=== PATIENT | female | born 1990 | race Caucasian/White ===

== ENCOUNTER 2019-07-23 12:25 | Inpatient (IN) ==
[2019-07-23] MEDS ORDERED: LACTATED RINGER'S 1,000 ML IV PRN (12:55)
[2019-07-23] MEDS ORDERED: OXYTOCIN 30 UNITS/500 ML BAG IV PRN ×2 (12:55→16:31)
--- NOTE | 2019-07-23 13:18 | History & Physical Report ---
Date of Service July 23, 2019 Assessment & Plan (1) Supervision of normal intrauterine in primigravida: 28yo at 39.2 weeks GA. Active labor 1. Fetus: Cat 1 2. Labor: Active. will augment PRN 3. GBS neg 4. Vitals: WNL (2) Normal labor: History of Present Illness Primary Care Provider: Manjinder Shore III, CRNP 28yo at 39.2 weeks GA. Patient present for ctx increasing in frequency and intensity. Denies LOF/VB. Good FM. has been uncomplicated to date. OB Labs: Blood Type A Positive 12/27/18 Antibody Screen NEGATIVE 12/27/18 Hemoglobin 13.4 g/dL (12.0-16.0) 05/11/19 Hematocrit 40.1 % (37-47) 05/11/19 Mean Corpuscular Volume 90.0 fL (80-100) 12/27/18 Platelet Count 285 K/uL (130-400) 12/27/18 Rubella IgG Antibody Immune (Immune) 12/27/18 Rapid Plasma Reagin Nonreactive (Nonreactive) 12/27/18 Hepatitis B Surface Antigen Neg (Neg) 12/27/18 HIV (1&2) Ab and P24 Ag, 4th Gener Neg (Neg) 12/27/18 Glucose 1 Hour 50 gm Load 118 mg/dl (70-130) 05/11/19 OB Optional Labs: Chlamydia trachomatis RNA NOT DETECTED (NOT DETECTED) 12/27/18 Neisseria gonorrhoeae RNA NOT DETECTED (NOT DETECTED) 12/27/18 Labs Reviewed: declines panorama, cf/sma today. Declined QUAD (-) GBS- TJH Allergies Allergy/AdvReac Type Severity Reaction Status Date / Time No Known Allergies Allergy Verified 07/23/19 13:06 Home Medications Home Medications Medication Instructions Recorded Confirmed Type prenat.vits,sebastian,sli-eecp-cldmm 1 tab PO DAILY 12/19/18 07/23/19 History Patient History Medical History (Updated 07/23/19 @ 13:15 by Anthony Jacob MD) Anxiety and depression no medications Encounter for anatomic survey Hx of varicella Normal labor Social History marital status: marital status details: Frank Alfonso (29) [phone] Current Living Situation: Spouse Current Living Situation Comment: no pets current occupational status: employed current occupation: teacher Smoking Status: Never smoker Hx Alcohol Use: No Hx Substance Use: No Physical Exam Constitutional: WD/WN, vitals as above well developed, well nourished and + well hydrated; no acute distress ENMT: external ear and nose normal, oropharynx normal Respiratory: normal respiratory effort, lungs clear to auscultation no respiratory distress, no labored breathing and no cough Cardiovascular: RRR, no murmur, no edema Heart Sounds: normal S1 and normal S2 Psychiatric: A+Ox3, euthymic affect Apperance: appropriately dressed and appropriately groomed Genitourinary: OB Exam Abdomen: + vertex Manual OB Exam: + cervical dilation 5 cm, + cervical effacement 100% and + station -1 OB Exam Monitor Tracing: + external FHT monitor used, + external uterine monitor used, + category I and + normal FHT variability; no early decelerations present, no late decelerations present and no variable decelerations Results & Data Vital Signs (Past 12 Hours) Vital Signs Pulse BP 07/23/19 12:58 72 135/68 Coding Level of Care Code None Diagnoses Supervision of normal intrauterine in primigravida Z34.00 Normal labor O80; Z37.9
[2019-07-23 13:24] LABS: Hematocrit (blood only) 41.3 % (37-47); Hemoglobin 14.2 g/dL (12.0-16.0); Mean Corpuscular Hemoglobin 31.7 pg (25-34); Mean Corpuscular Volume 92.2 fL (80-100); Platelet Count 274 K/uL (130-400); RDW Coefficient of Variation 13.1 % (11.5-14.5); RDW Standard Deviation 44.2 fL (36.4-46.3); Red Blood Count 4.48 M/uL (4.2-5.4); White Blood Count 14.83 K/uL (4.8-10.8)
[2019-07-23 13:26] LABS: Mean Corpuscular Hgb Conc 34.4 g/dL (32-36)
[2019-07-23] MEDS ORDERED: DIPHTHERIA/TETANUS/PERTUSSIS 0.5 ML SYR/VIAL IM ONE (16:31)
[2019-07-23] MEDS ORDERED: SUPERCREAM 0.870% 15 GM JAR EXT PRN (16:31)
[2019-07-23] MEDS ORDERED: BENZOCAINE 20% AER SPR 82.5 GM CAN EXT PRN (16:31)
[2019-07-23] MEDS ORDERED: HYDROCORTISONE ACETATE 25 MG SUPP PR PRN (16:31)
[2019-07-23] MEDS ORDERED: bisacodyL 10 MG SUPP PR PRN (16:31)
[2019-07-23] MEDS ORDERED: ACETAMINOPHEN 325 MG TAB PO PRN (16:31)
--- NOTE | 2019-07-23 17:11 | Delivery Summary ---
DATE OF OPERATION: 07/23/2019 PROCEDURE: Normal spontaneous vaginal delivery with bilateral sulcal and second degree perineal laceration repair. SURGEON: Anthony Jacob MD. PREOPERATIVE DIAGNOSES: 1. Single intrauterine at 39 weeks' gestational age. 2. Active labor. POSTOPERATIVE DIAGNOSES: 1. Single intrauterine at 39 weeks' gestational age. 2. Active labor. 3. Status post delivery. ESTIMATED BLOOD LOSS: 300 mL. DRAINS: None. FLUIDS: Continuous lactated Ringer. URINE OUTPUT: Not measured. COMPLICATIONS: None. FINDINGS: Viable male infant with weight pending, Apgars of 8 and 9 at one and five minutes respectively. INDICATIONS: The patient was admitted in active labor. She progressed without augmentation. At the time she reached 9.5 cm dilated, she underwent artificial rupture of membranes for clear fluid. Shortly thereafter, she pushed over approximately 3-4 contractions to achieve delivery. DESCRIPTION OF PROCEDURE: The patient progressed to 10 cm dilated, 100% effaced, +3 station, pushed over intact perineum without anesthesia and delivered a viable male with weight and Apgars as noted per above. The head of the delivered in SAGRARIO position, restituted to right transverse. A nuchal cord was noted, which was easily reduced. Body and shoulders quickly followed. was delivered to maternal abdomen and was noted to be vigorous soon after delivery. A 1-minute delayed cord clamping was initiated, after which the cord was double clamped and cut and the remained on maternal abdomen. Cord blood was obtained. Attention was then turned to deliver the placenta, which was delivered intact with 3-vessel cord, gentle cord traction. On inspection of perineum, vagina, and cervix, there was noted to be bilateral sulcal lacerations and a second degree perineal laceration, all lacerations repaired with 2-0 Vicryl. The perineal laceration was performed in the traditional crown stitch and bilateral sulcals were repaired with a running locked suture stitch. Needle, sponge and instrument counts were correct at the completion of the case. Both mother and were stable in the immediate post-delivery period. I attest to the content of the Intraoperative Record and any orders documented therein. Any exception s are noted below.
[2019-07-23] MEDS: IBUPROFEN 600 MG TAB PO PRN ×2 (18:00→22:33)
[2019-07-23] MEDS: DOCUSATE SODIUM 100 MG CAP PO SCH (21:40)
[2019-07-24] MEDS: IBUPROFEN 600 MG TAB PO PRN ×3 (04:49→21:10)
--- NOTE | 2019-07-24 06:50 | Obstetrical Progress Note ---
Date of Service <Butch Perez DO Last Filed: 07/24/19 06:52> July 24, 2019 Assessment & Plan <DO Soraya Bardales Last Filed: 07/24/19 06:52> (1) : -PPD#1 -Vitals reviewed, WNL - GBS -, Blood Type A+ - Clinically stable. - Feels well today. Eating well, voiding well, ambulating well. - Pain well controlled. - Routine post- care - After discharge will have [address] Jacob. Day #:: 1 Subjective <Butch Perez DO Last Filed: 07/24/19 06:52> Ambulation: ambulating normally Voiding: no voiding problems Passing Gas:: Yes Diet Tolerance:: regular diet Lochia:: Moderate Feeding Type:: bottle feeding Current Pain Level(1-10): 3 (improves with analgesics) Patient is a 28 PPD#1. Patient states that she is feeling well today and that her pain is well controlled. She has no other complaints at this time. Constitutional: no fever and no chills Respiratory: no cough, no dyspnea and no wheezing Cardiovascular: no chest pain, no dyspnea, no palpitations, no edema and no calf pain Breast: no breast pain Gastrointestinal: no abdominal pain, no nausea and no vomiting Genitourinary (female): no dysuria and no difficulty urinating Neurologic: no headache(s) Physical Exam <DO Soraya Bardales Last Filed: 07/24/19 06:52> Constitutional WD/WN, vitals as above Respiratory normal respiratory effort, lungs clear to auscultation Cardiovascular Rate/Rhythm: regular rate and regular rhythm Heart Sounds: normal S1 and normal S2; no click, no gallop, no murmur and no cardiac rub Extremities: no calf tenderness and no edema Gastrointestinal (Abdomen) Inspection/Auscultation: abdomen normal to inspection and normal bowel sounds Percussion/Palpation: abdomen soft; abdomen nontender Genitourinary OB Exam Abdomen: + fundal height Fundus: + firm and + relation to umbilicus (2cm below ); not tender and not boggy Results & Data <DO Soraya Bardales Last Filed: 07/24/19 06:52> Vital Signs (Past 12 Hours) Vital Signs Temp Pulse Resp BP Pulse Ox 07/24/19 04:40 36.5 C 61 17 135/79 99 07/23/19 23:20 36.8 C 79 17 132/83 97 07/23/19 19:45 36.4 C L 84 16 124/78 97 <Anthony Jacob MD - Last Filed: 07/24/19 08:09> Co-Signing Physician Notes Patient seen and evaluated and agree with the above findings and plan. Routine care Resident Activity Tracking <Butch Perez DO - Last Filed: 07/24/19 06:52> Resident Involvement: Resident Care Provided Care Provided: OB Delivery
[2019-07-24 07:31] LABS: Hematocrit (blood only) 37.4 % (37-47); Hemoglobin 12.8 g/dL (12.0-16.0); Mean Corpuscular Hemoglobin 31.8 pg (25-34); Mean Corpuscular Hgb Conc 34.2 g/dL (32-36); Mean Platelet Volume 10.8 fL (7.4-10.4); Platelet Count 242 K/uL (130-400); RDW Coefficient of Variation 13.4 % (11.5-14.5); RDW Standard Deviation 45.9 fL (36.4-46.3); Red Blood Count 4.02 M/uL (4.2-5.4)
[2019-07-24] MEDS: FERROUS SULFATE 325 MG TAB PO SCH (08:57)
[2019-07-24] MEDS: DOCUSATE SODIUM 100 MG CAP PO SCH ×2 (08:57→19:41)
[2019-07-24] MEDS: PRENATAL VITAMIN 1 TAB PO SCH (08:57)
[2019-07-24] MEDS ORDERED: bisacodyL 5 MG TABEC PO SCH (20:00)
[2019-07-25] MEDS: IBUPROFEN 600 MG TAB PO PRN ×3 (02:13→12:46)
[2019-07-25 06:14] LABS: Hematocrit (blood only) 38.8 % (37-47)
--- NOTE | 2019-07-25 06:17 | Obstetrical Progress Note ---
Date of Service <Butch Perez DO Last Filed: 07/25/19 06:17> July 25, 2019 Assessment & Plan <DO Soraya Bardales Last Filed: 07/25/19 06:17> (1) : -PPD#2 -Vitals reviewed, WNL - GBS -, Blood Type A+ - Clinically stable. - Feels well today. Eating well, voiding well, ambulating well. - Pain well controlled. - Routine post- care - Discharge instructions discussed with patient - After discharge will have [address] Jacob. Day #:: 2 Subjective <Butch Perez DO - Last Filed: 07/25/19 06:17> Ambulation: ambulating normally Voiding: no voiding problems Passing Gas:: Yes Diet Tolerance:: regular diet Lochia:: Moderate Feeding Type:: breast feeding Current Pain Level(1-10): 2 (improved with analgesics) Patient is a 28 PPD#2. Patient states that she is feeling well today and that her pain is well controlled. She has no other complaints at this time. She does request today to review with the counseling specialist. Constitutional: no fever and no chills Respiratory: no cough, no dyspnea and no wheezing Cardiovascular: no chest pain, no dyspnea, no palpitations, no edema and no calf pain Breast: no breast pain Gastrointestinal: no abdominal pain, no nausea and no vomiting Genitourinary (female): no dysuria and no difficulty urinating Neurologic: no headache(s) Physical Exam <DO Soraya Bardales Last Filed: 07/25/19 06:17> Constitutional WD/WN, vitals as above Respiratory normal respiratory effort, lungs clear to auscultation Cardiovascular Rate/Rhythm: regular rate and regular rhythm Heart Sounds: normal S1 and normal S2; no click, no gallop, no murmur and no cardiac rub Extremities: no calf tenderness and no edema Gastrointestinal (Abdomen) Inspection/Auscultation: abdomen normal to inspection and normal bowel sounds Percussion/Palpation: abdomen soft; abdomen nontender Genitourinary OB Exam Abdomen: + fundal height Fundus: + firm and + relation to umbilicus (3cm below); not tender and not boggy Results & Data <Butch MonaconDO Lira Last Filed: 07/25/19 06:17> Vital Signs (Past 12 Hours) Vital Signs Temp Pulse Resp BP Pulse Ox 07/24/19 23:35 36.9 C 77 16 118/79 96 07/24/19 19:50 36.6 C 97 H 18 134/84 <Lois Caraballo MD - Last Filed: 07/25/19 07:25> Co-Signing Physician Notes I have reviewed the resident's note and examined the patient myself, and agree with the note above. Resident Activity Tracking <Butch Perez DO - Last Filed: 07/25/19 06:17> Resident Involvement: Resident Care Provided Care Provided: OB Delivery
[2019-07-25] MEDS: DOCUSATE SODIUM 100 MG CAP PO SCH (07:50)
[2019-07-25] MEDS: PRENATAL VITAMIN 1 TAB PO SCH (07:51)
[2019-07-25] MEDS: FERROUS SULFATE 325 MG TAB PO SCH (07:51)
== END 2019-07-25 14:45 | disposition home or self-care (01) | DRG 807 ==
LOC: LAB 12:25 → 4S1 12:49 → 4S2 19:31

== ENCOUNTER 2019-08-29 10:55 | Observation (INO) ==
[2019-08-29] MEDS ORDERED: ACETAMINOPHEN 325 MG TAB PO STA (12:01)
[2019-08-29] MEDS ORDERED: SODIUM CHLORIDE 0.9% 500 ML IV SCH (12:15)
--- NOTE | 2019-08-29 12:20 | Emergency Department Note ---
Impression & Plan Acute appendicitis, Abdominal pain, Left nephrolithiasis ED Provider Note NAME: FRANCK ALFONSO AGE: 28 SEX: F : 1990 ARRIVES VIA: Walk-In INFORMANT: Patient, ED PROVIDER(S): George Duffy MD Chief Complaint: Abdominal pain HPI: Patient presents w/ abdominal pain. Localized to lower abdomen and RLQ beginning around 2 AM. She describes it as achy and non-radiating. Denies nausea or vomiting. Patient is 5 weeks post . The patient has been breast pumping and breast-feeding. The patient denies any recent trauma or overuse or injury to the right hip or abdomen. The patient has not had any recent travel or fevers. The patient states she has had no vaginal bleeding only some spotting. Patient denies any discharge. This is the patient's first . Child is doing well at home. He did have a little bit of weight loss but that is improving. Patient has not taken anything for her pain at this time. Patient states it is worse with palpation. ROS: See HPI for pertinent positives and negatives. A total of 10 systems were reviewed and otherwise negative. Past medical history: See below Surgical history: See below Social history: See below Physical Exam: GENERAL: NAD, non-toxic. Wearing a mask. EYE EXAM: Normal conjunctiva. PERRL, no anisocoria and EOM's grossly intact w/o pain. NECK: Supple, no nuchal rigidity, no adenopathy, non-tender. No signs of meningismus. LUNGS: Clear to auscultation. Normal chest wall mechanics. HEART: NSR, no MRG. ABDOMEN: Abdomen soft, mild pain right abdomen and abdomen right lower quadrant area, positive obturator, negative psoas, normo-active bowel sounds, no masses, no rebound or guarding. BACK: No CVA TTP. SKIN: No rashes and no bruising. UPPER EXTREMITIES: Upper extremities are grossly normal. LOWER EXTREMITIES: Grossly normal, no edema. No reproducible hip or thigh pain. No pain with internal or external rotation or flexion or extension of the hip. NEURO EXAM: A&O x3, cranial nerves II-XII grossly intact, normal speech, moves all 4 extremities on command w/o issue. Differential diagnoses: Appendicitis, ovarian cyst, ovarian torsion, ectopic , TOA, PID, infections, diverticulitis, UTI, obstruction, mesenteric ischemia, aortic pathology, inflammatory bowel disease, renal colic, PUD, pancreatitis, biliary pathology, hernia, volvulus, constipation, as well as other pathologies. Course: Patient was seen and evaluated the bedside. Full history physical exam was performed. EKG: None Imaging Studies: Radiology results as stated below per my review in the radiologist's interpretation: CT SCAN OF THE ABDOMEN AND PELVIS WITH IV CONTRAST CLINICAL HISTORY: Right lower quadrant abdominal pain. Recently . COMPARISON STUDY: No priors. TECHNIQUE: Following the IV administration of 92 cc of Optiray 320, CT scan of the abdomen and pelvis is performed from the lung bases to the proximal femora. Images are reviewed in the axial, sagittal, and coronal planes. IV contrast was administered without complication. A dose lowering technique was utilized adhering to the principles of ALARA. CT DOSE: 770.18 mGycm FINDINGS: Lung bases: The heart is normal in size and without pericardial effusion. The lung bases are clear. Liver: The contrast-enhanced liver is normal in size, contour, and attenuation. There is no intrahepatic biliary ductal dilatation. The hepatic veins and portal veins are patent. Gallbladder: Unremarkable. Spleen: Normal in size and attenuation. Pancreas: Unremarkable. Adrenal glands: Unremarkable. Kidneys: The contrast enhanced kidneys are normal in size and without hydronephrosis. The kidneys enhance symmetrically. There is a 6 mm nonobstructing calculus in the lower pole of the left kidney. Abdominal vasculature: The abdominal aorta is normal in course and caliber. Bowel: There is no bowel obstruction. Cfrg-ad-tnaanrhy fecal retention is seen throughout the colon. The appendix is distended and fluid-filled measuring up to 10 mm in diameter. This is best seen on image #312. The appendiceal wall is thickened and there is periappendiceal stranding. Findings are consistent with acute appendicitis. No abscess is seen. Peritoneum: There is no intraperitoneal free air or abdominal ascites. There is a fat-containing umbilical hernia. Lymphadenopathy: None. Pelvic viscera: The uterus is mildly enlarged and heterogeneous, likely related to state. The bladder is normal as imaged. There are bilateral ovarian follicles. Skeletal structures: No lytic or blastic lesions are seen. Sclerotic change is noted in the sacroiliac joints. IMPRESSION: 1. Findings are consistent with acute appendicitis. 2. There is no evidence of abscess or perforation. 3. Left-sided nephrolithiasis. ACT 112: Negative or not required by law. Electronically signed by: Grzegorz Collins M.D. 08/29/2019 2:39 PM Dictated: 08/29/19 1435 Transcribed: 08/29/19 1435 Cardiac monitoring: An order was placed for continuous cardiac monitoring. The monitor shows a rate of 100 with sinus rhythm. MDM: Patient did have blood work completed and did have a CT of the abdomen pelvis. Urinalysis was also obtained the patient was given IV fluids and Tylenol. The patient did not have any nausea at this time. Patient does have a normal white count H&H and platelet count the patient's kidney function is unremarkable. Urinalysis does show some blood and questionable infection but the patient does not complain of any dysuria. The patient is also had some white vaginal spotting. test negative. Patient CT consistent with an acute appendicitis. The patient does have left- sided kidney stones. I did speak with the on-call general surgeon Dr. Flores and Bonnie Ivey PA-C. Patient was ordered Mefoxin and rapid COVID test. COVID negative. Patient did feel improved after the Tylenol. Patient was ordered additional maintenance fluids. I did report the findings to the patient and the patient will be admitted to Dr. Flores service. Patient was taken to the OR for appendectomy. 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 Beliefs That Will Affect Care: None marital status: marital status details: Frank Alfonso (29) [phone] Current Living Situation: Spouse Current Living Situation Comment: no pets current occupational status: employed current occupation: teacher Feels Safe at Home: Yes Smoking Status: Never smoker Hx Alcohol Use: No Hx Substance Use: No Allergies Allergies Allergy/AdvReac Type Severity Reaction Status Date / Time No Known Allergies Allergy Verified 08/29/19 11:50 Home Meds Home Medications Medication Instructions Recorded Confirmed prenat.vits,sebastian,[id number] 1 tab PO DAILY 12/19/18 08/29/19 Previous Rx's Medication Instructions Recorded acetaminophen [Mapap 650 mg PO Q6H PRN #1 tab 07/24/19 (acetaminophen)] Results & Data (ED) Vital Signs Vital Signs - 24 hr 08/29/19 11:10 08/29/19 12:48 08/29/19 13:47 Temperature 37.2 C Temperature Source Oral Pulse Rate 125 H 78 Pulse Rate [Left Finger] 76 70 Pulse Rhythm [Left Finger] Pulse Strength [Left Finger] Respiratory Rate 20 20 20 Respiratory Effort / Characteristics Non-Labored Spontaneous Respiratory Depth Normal Respiratory Pattern Regular Blood Pressure 117/81 Blood Pressure [Left Arm] 95/66 L 107/65 Blood Pressure Mean 93 Blood Pressure Mean [Left Arm] 75 79 Blood Pressure Position [Left Arm] Pulse Oximetry 98 95 100 Oxygen Delivery Method Room Air Room Air Sepsis Recent Fever Within 48 Hours No Sepsis New/Unexplained Change in Mental Status N/A Sepsis Action Taken by Nursing No Action Required 08/29/19 15:35 08/29/19 16:21 08/29/19 16:23 Temperature 36.5 C 36.7 C Temperature Source Oral Oral Pulse Rate Pulse Rate [Left Finger] 96 H 81 Pulse Rhythm [Left Finger] Regular Pulse Strength [Left Finger] Normal Respiratory Rate 19 16 Respiratory Effort / Characteristics Non-Labored Spontaneous Respiratory Depth Normal Respiratory Pattern Regular Blood Pressure Blood Pressure [Left Arm] 134/67 112/79 Blood Pressure Mean Blood Pressure Mean [Left Arm] 89 90 Blood Pressure Position [Left Arm] Semi-fowlers Pulse Oximetry 100 99 Oxygen Delivery Method Room Air Room Air Room Air Sepsis Recent Fever Within 48 Hours Sepsis New/Unexplained Change in Mental Status Sepsis Action Taken by [facility] Medications Current Medication List: was personally reviewed by me Laboratory Data Attestation: I reviewed the patient's lab results. Result diagrams: 08/29/19 12:20 08/29/19 12:20 Lab Results 08/29/19 08/29/19 08/29/19 Range/Units 12:20 12:20 12:20 WBC 9.09 (4.8-10.8) K/uL RBC 4.78 (4.2-5.4) M/uL Hgb 14.4 (12.0-16.0) g/dL Hct 43.2 (37-47) % MCV 90.4 (80-100) fL MCH 30.1 (25-34) pg MCHC 33.3 (32-36) g/dL RDW Std Deviation 40.4 (36.4-46.3) fL RDW Coeff of Gareth 12.1 (11.5-14.5) % Plt Count 280 (130-400) K/uL MPV 9.6 (7.4-10.4) fL Immature Gran % (Auto) 0.2 % Neut % (Auto) 76.1 % Lymph % (Auto) 16.4 % [place] % (Auto) 5.6 % Eos % (Auto) 1.5 % Baso % (Auto) 0.2 % Neut # (Auto) 6.91 H (1.4-6.5) K/uL Lymph # (Auto) 1.49 (1.2-3.4) K/uL [place] # (Auto) 0.51 (0.11-0.59) K/uL Eos # (Auto) 0.14 (0-0.5) K/uL Baso # (Auto) 0.02 (0-0.2) K/uL Immature Gran # (Auto) 0.02 (0.00-0.02) K/uL Sodium 141 (136-145) mmol/L Potassium 4.0 (3.5-5.1) mmol/L Chloride 110 H (98-107) mmol/L Carbon Dioxide 25 (21-32) mmol/L Anion Gap 6.0 (3-11) BUN 12 (7-18) mg/dl Creatinine 0.89 (0.6-1.2) mg/dl Est Cr Clr Drug Dosing 101.6 ml/min Est GFR ( Amer) 102.9 Est GFR (Non-Af Amer) 88.8 BUN/Creatinine Ratio 13.9 (10-20) Glucose 90 (70-99) mg/dl Calcium 8.5 (8.5-10.1) mg/dl Total Bilirubin 0.7 (0.2-1) mg/dl AST 22 (15-37) U/L ALT 48 (12-78) U/L Alkaline Phosphatase 70 (45-117) U/L Total Protein 7.8 (6.4-8.2) gm/dl Albumin 3.7 (3.4-5.0) gm/dl Globulin 4.1 H (2.5-4.0) gm/dl Albumin/Globulin Ratio 0.9 (0.9-2) Lipase 76 (73-393) U/L Urine Color Yellow Urine Appearance Cloudy A (Clear) Urine pH 6.5 (4.5-7.5) Ur Specific [place] 1.020 (1.000-1.030) Urine Protein Trace H (Negative) Urine Glucose (UA) Negative (Negative) Urine Ketones Negative (Negative) Urine Blood 2+ H (Negative) Urine Nitrite Negative (Negative) Urine Bilirubin Negative (Negative) Urine Urobilinogen Negative (Negative) Ur Leukocyte Esterase 3+ H (Negative) Urine WBC (Auto) >30 H (0-5) /hpf Urine RBC (Auto) 10-30 H (0-4) /hpf U Hyaline Cast (Auto) 1-5 (0-5) /lpf U Epithel Cells (Auto) 10-20 H (0-5) /lpf Urine Bacteria (Auto) 1+ H (Negative) Urine Yeast Not Reportable POC Ur Test (NEG) COVID-19 PCR (Negative) 08/29/19 08/29/19 Range/Units 15:00 16:57 WBC (4.8-10.8) K/uL RBC (4.2-5.4) M/uL Hgb (12.0-16.0) g/dL Hct (37-47) % MCV (80-100) fL MCH (25-34) pg MCHC (32-36) g/dL RDW Std Deviation (36.4-46.3) fL RDW Coeff of Gareth (11.5-14.5) % Plt Count (130-400) K/uL MPV (7.4-10.4) fL Immature Gran % (Auto) % Neut % (Auto) % Lymph % (Auto) % [place] % (Auto) % Eos % (Auto) % Baso % (Auto) % Neut # (Auto) (1.4-6.5) K/uL Lymph # (Auto) (1.2-3.4) K/uL [place] # (Auto) (0.11-0.59) K/uL Eos # (Auto) (0-0.5) K/uL Baso # (Auto) (0-0.2) K/uL Immature Gran # (Auto) (0.00-0.02) K/uL Sodium (136-145) mmol/L Potassium (3.5-5.1) mmol/L Chloride (98-107) mmol/L Carbon Dioxide (21-32) mmol/L Anion Gap (3-11) BUN (7-18) mg/dl Creatinine (0.6-1.2) mg/dl Est Cr Clr Drug Dosing ml/min Est GFR ( Amer) Est GFR (Non-Af Amer) BUN/Creatinine Ratio (10-20) Glucose (70-99) mg/dl Calcium (8.5-10.1) mg/dl Total Bilirubin (0.2-1) mg/dl AST (15-37) U/L ALT (12-78) U/L Alkaline Phosphatase (45-117) U/L Total Protein (6.4-8.2) gm/dl Albumin (3.4-5.0) gm/dl Globulin (2.5-4.0) gm/dl Albumin/Globulin Ratio (0.9-2) Lipase (73-393) U/L Urine Color Urine Appearance (Clear) Urine pH (4.5-7.5) Ur Specific [place] (1.000-1.030) Urine Protein (Negative) Urine Glucose (UA) (Negative) Urine Ketones (Negative) Urine Blood (Negative) Urine Nitrite (Negative) Urine Bilirubin (Negative) Urine Urobilinogen (Negative) Ur Leukocyte Esterase (Negative) Urine WBC (Auto) (0-5) /hpf Urine RBC (Auto) (0-4) /hpf U Hyaline Cast (Auto) (0-5) /lpf U Epithel Cells (Auto) (0-5) /lpf Urine Bacteria (Auto) (Negative) Urine Yeast POC Ur Test NEG (NEG) COVID-19 PCR NEGATIVE (Negative) Administered Medications Sodium Chloride (Nss) 500 mls @ 125 mls/hr IV .Q4H LÓPEZ Stop: 09/28/19 15:14 Last Admin: 08/29/19 15:31 Dose: 125 mls/hr Documented by: [id number] Ioversol (Optiray 320 100ml) 92 ml IV ONCE PRN PRN Reason: Interaction Checking Stop: 09/02/19 14:22 Last Admin: 08/29/19 14:23 Dose: 92 ml Documented by: [id number] Discontinued Medications Acetaminophen (Tylenol) 650 mg PO NOW STA Stop: 08/29/19 12:02 Last Admin: 08/29/19 12:45 Dose: 650 mg Documented by: [id number] Sodium Chloride (Nss) 500 mls @ 999 mls/hr IV .Q31M LÓPEZ Stop: 08/29/19 12:45 Last Infusion: 08/29/19 13:05 Dose: 0 mls/hr Documented by: [id number] Admin: 08/29/19 12:20 Dose: 999 mls/hr Documented by: [id number] Cefoxitin Sodium (Mefoxin) 1,000 mg in 50 mls @ 100 mls/hr IV NOW STA Stop: 08/29/19 15:33 Last Infusion: 08/29/19 16:01 Dose: 0 mls/hr Documented by: [id number] Admin: 08/29/19 15:31 Dose: 100 mls/hr Documented by: [id number] Discharge Plan Visit Data Chief Complaint: Abdominal Pain Stated Complaint: ABD PAIN -5 WEEKS POST ED Provider: George Duffy Discharge Problem: Acute appendicitis, Abdominal pain, Left nephrolithiasis Patient Disposition: Being Evaluated by Surgeon Discharge Instructions Interventions: ED Discharge Assessment Last Done: 08/29/19 16:21 Discharge Problem: Acute appendicitis Qualifiers: Acute appendicitis type: with localized peritonitis Appendicitis gangrene presence: without gangrene Appendicitis perforation presence: without perforation Appendicitis abscess presence: without abscess Qualified Code(s): K35.30 - Acute appendicitis with localized peritonitis, without perforation or gangrene Abdominal pain Qualifiers: Abdominal location: right lower quadrant Qualified Code(s): R10.31 - Right lower quadrant pain
[2019-08-29 12:31] LABS: Basophils # (auto) 0.02 K/uL (0-0.2); Basophils % (auto) 0.2 %; Eosinophils # (auto) 0.14 K/uL (0-0.5); Eosinophils % (auto) 1.5 %; Hematocrit (blood only) 43.2 % (37-47); Hemoglobin 14.4 g/dL (12.0-16.0); Immature Granulocytes # (auto) 0.02 K/uL (0.00-0.02); Immature Granulocytes % (auto) 0.2 %; Lymphocytes # (auto) 1.49 K/uL (1.2-3.4); Lymphocytes % (auto) 16.4 %; Mean Corpuscular Hemoglobin 30.1 pg (25-34); Mean Corpuscular Hgb Conc 33.3 g/dL (32-36); Mean Corpuscular Volume 90.4 fL (80-100); Mean Platelet Volume 9.6 fL (7.4-10.4); Monocytes # (auto) 0.51 K/uL (0.11-0.59); Monocytes % (auto) 5.6 %; Neutrophils # (auto) 6.91 K/uL (1.4-6.5); Neutrophils % (auto) 76.1 %; Platelet Count 280 K/uL (130-400); RDW Coefficient of Variation 12.1 % (11.5-14.5); RDW Standard Deviation 40.4 fL (36.4-46.3); Red Blood Count 4.78 M/uL (4.2-5.4); White Blood Count 9.09 K/uL (4.8-10.8)
[2019-08-29 12:38] LABS: Appearance Urine Cloudy (Clear); Bacteria Urine Automated 1+ (Negative); Bilirubin Urine Negative (Negative); Blood Urine 2+ (Negative); Color Urine Yellow; Glucose Urine UA Negative (Negative); Ketones Urine Negative (Negative); Leukocyte Esterase Urine 3+ (Negative); Nitrite Urine Negative (Negative); Protein Urine Trace (Negative); Urobilinogen Urine Negative (Negative); WBC Urine Automated >30 /hpf (0-5); pH Urine 6.5 (4.5-7.5)
[2019-08-29 12:53] LABS: Albumin Level 3.7 gm/dl (3.4-5.0); BUN Creatinine Ratio 13.9 (10-20); Calcium 8.5 mg/dl (8.5-10.1); Creatinine Clr Calc Pharmacy 101.6 ml/min; Est GFR (African American) 102.9; Est GFR (Non-African American) 88.8
[2019-08-29 12:55] LABS: Albumin Globulin Ratio 0.9 (0.9-2); Bilirubin,Total 0.7 mg/dl (0.2-1); Globulin 4.1 gm/dl (2.5-4.0); Total Protein 7.8 gm/dl (6.4-8.2)
[2019-08-29] MEDS ORDERED: IOVERSOL 100ml IV PRN (14:23)
--- NOTE | 2019-08-29 14:40 | CT Scan Report ---
CT SCAN OF THE ABDOMEN AND PELVIS WITH IV CONTRAST CLINICAL HISTORY: Right lower quadrant abdominal pain. Recently . COMPARISON STUDY: No priors. TECHNIQUE: Following the IV administration of 92 cc of Optiray 320, CT scan of the abdomen and pelvi s is performed from the lung bases to the proximal femora. Images are reviewed in the axial, sagittal , and coronal planes. IV contrast was administered without complication. A dose lowering technique wa s utilized adhering to the principles of ALARA. CT DOSE: 770.18 mGycm FINDINGS: Lung bases: The heart is normal in size and without pericardial effusion. The lung bases are clear. Liver: The contrast-enhanced liver is normal in size, contour, and attenuation. There is no intrahepa tic biliary ductal dilatation. The hepatic veins and portal veins are patent. Gallbladder: Unremarkable. Spleen: Normal in size and attenuation. Pancreas: Unremarkable. Adrenal glands: Unremarkable. Kidneys: The contrast enhanced kidneys are normal in size and without hydronephrosis. The kidneys enh ance symmetrically. There is a 6 mm nonobstructing calculus in the lower pole of the left kidney. Abdominal vasculature: The abdominal aorta is normal in course and caliber. Bowel: There is no bowel obstruction. Ntvz-ug-byvggblt fecal retention is seen throughout the colon. The appendix is distended and fluid-filled measuring up to 10 mm in diameter. This is best seen on i mage #312. The appendiceal wall is thickened and there is periappendiceal stranding. Findings are con sistent with acute appendicitis. No abscess is seen. Peritoneum: There is no intraperitoneal free air or abdominal ascites. There is a fat-containing umbi lical hernia. Lymphadenopathy: None. Pelvic viscera: The uterus is mildly enlarged and heterogeneous, likely related to state. The bladder is normal as imaged. There are bilateral ovarian follicles. Skeletal structures: No lytic or blastic lesions are seen. Sclerotic change is noted in the sacroilia c joints. IMPRESSION: 1. Findings are consistent with acute appendicitis. 2. There is no evidence of abscess or perforation. 3. Left-sided nephrolithiasis. ACT 112: Negative or not required by law. Electronically signed by: Grzegorz Collins M.D. 08/29/2019 2:39 PM
[2019-08-29] MEDS ORDERED: cefOXitin 1,000 MG/50 ML BAG IV STA (15:04)
--- NOTE | 2019-08-29 15:15 | History & Physical Report ---
Date of Service August 29, 2019 Assessment & Plan (1) Acute appendicitis: This is a 28y F who is 5weeks post who presents to the [facility] ED on 08/29/19 with complaints of abdominal pain. Workup in the ED revealed findings concerning for acute appendicitis. WBC 9 and patient afebrile with VSS. Patient is tender to palpation in the RLQ. Based on exam and imaging findings we will take patient to the OR for a laparoscopic appendectomy. Keep NPO with IVF and start preop IV abx. Patient agreeable with plan. Dr. Flores will be by to obtain surgical consent. History of Present Illness Primary Care Provider: Manjinder Shore III, ANJALI This is a 28y F who is 5weeks post who presents to the [facility] ED on 08/29/19 with complaints of abdominal pain. Patient reports she woke up around 2am with abdominal pain. She thought it felt like cramps and went across the mid-abdomen. She took a Tums without relief. She came to the ED for further evaluation. Workup revealed a WBC of [address] a/p was obtained that revealed findings concerning for acute appendicitis. Patient states her pain is more in the right lower abdomen at this time. She said its sharp with movement rating it a 5/10 and is dull and less intense while lying down. She denies fevers/chills, nausea/vomiting, chest pain or shortness of breath. She last ate a bowl of cereal around 8am. She has no prior abdominal surgeries. Allergies Allergy/AdvReac Type Severity Reaction Status Date / Time No Known Allergies Allergy Verified 08/29/19 11:50 Home Medications Home Medications Medication Instructions Recorded Confirmed Type prenat.vits,sebastian,[id number] 1 tab PO DAILY 12/19/18 08/29/19 History acetaminophen [Mapap 650 mg PO Q6H PRN #1 tab 07/24/19 08/29/19 Rx (acetaminophen)] Past Med/Surg History Medical History Anxiety and depression no medications Encounter for anatomic survey Hx of varicella Normal labor Surgical History S/P wisdom tooth extraction Family History Mother Hypertension Hypothyroidism Dyslipidemia Thyroid disease Grandmother (Paternal) Breast cancer HHT (hereditary hemorrhagic telangiectasia) Grandfather (Paternal) Myocardial infarction Grandfather (Maternal) Myocardial infarction Drinking problem Grandfather (Paternal) Diabetes Uncle Drinking problem Social History Preferred Language: [place] [employer]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 Beliefs That Will Affect Care: None marital status: marital status details: Frank Alfonso (29) [phone] Current Living Situation: Spouse Current Living Situation Comment: no pets current occupational status: employed current occupation: teacher Feels Safe at Home: Yes Smoking Status: Never smoker Hx Alcohol Use: No Hx Substance Use: No Review of Systems Constitutional: no fever and no chills Respiratory: no dyspnea Cardiovascular: no chest pain Gastrointestinal: + abdominal pain (+ lower abdominal pain, worse on R side); no nausea, no vomiting and no change in bowel habits Physical Exam Physical Exam: awake/alert Respiratory: normal respiratory effort Gastrointestinal (Abdomen): Inspection/Auscultation: abdomen not distended Percussion/Palpation: + abdomen tender (ttp RLQ) and abdomen soft; no guarding Results & Data Results & Data ([facility]) Vital Signs (Past 12 Hours) Vital Signs Temp Pulse Pulse Resp BP BP Pulse Ox 08/29/19 13:47 78 70 20 107/65 100 08/29/19 12:48 76 20 95/66 L 95 08/29/19 11:10 37.2 C 125 H 20 117/[address] SCAN OF THE ABDOMEN AND PELVIS WITH IV CONTRAST CLINICAL HISTORY: Right lower quadrant abdominal pain. Recently . COMPARISON STUDY: No priors. TECHNIQUE: Following the IV administration of 92 cc of Optiray 320, CT scan of the abdomen and pelvis is performed from the lung bases to the proximal femora. Images are reviewed in the axial, sagittal, and coronal planes. IV contrast was administered without complication. A dose lowering technique was utilized adhering to the principles of ALARA. CT DOSE: 770.18 mGycm FINDINGS: Lung bases: The heart is normal in size and without pericardial effusion. The lung bases are clear. Liver: The contrast-enhanced liver is normal in size, contour, and attenuation. There is no intrahepatic biliary ductal dilatation. The hepatic veins and portal veins are patent. Gallbladder: Unremarkable. Spleen: Normal in size and attenuation. Pancreas: Unremarkable. Adrenal glands: Unremarkable. Kidneys: The contrast enhanced kidneys are normal in size and without hydronephrosis. The kidneys enhance symmetrically. There is a 6 mm nonobstructing calculus in the lower pole of the left kidney. Abdominal vasculature: The abdominal aorta is normal in course and caliber. Bowel: There is no bowel obstruction. Usen-ci-hpfybgyd fecal retention is seen throughout the colon. The appendix is distended and fluid-filled measuring up to 10 mm in diameter. This is best seen on image #312. The appendiceal wall is thickened and there is periappendiceal stranding. Findings are consistent with acute appendicitis. No abscess is seen. Peritoneum: There is no intraperitoneal free air or abdominal ascites. There is a fat-containing umbilical hernia. Lymphadenopathy: None. Pelvic viscera: The uterus is mildly enlarged and heterogeneous, likely related to state. The bladder is normal as imaged. There are bilateral ovarian follicles. Skeletal structures: No lytic or blastic lesions are seen. Sclerotic change is noted in the sacroiliac joints. IMPRESSION: 1. Findings are consistent with acute appendicitis. 2. There is no evidence of abscess or perforation. 3. Left-sided nephrolithiasis. ACT 112: Negative or not required by law. Electronically signed by: Grzegorz Collins M.D. 08/29/2019 2:39 PM Dictated: 08/29/19 1435 Transcribed: 08/29/19 1435 PG Care Time/CCT Total # of Minutes Spent Total Time Spent with Patient: Total time spent is greater than 50% in coordination of care (as documented) at patient's floor/unit and/or counseling patient: Coding Level of Care Code 04283 OBS Care - Level 3 Diagnoses Acute appendicitis K35.80
[2019-08-29] MEDS: SODIUM CHLORIDE 0.9% 500 ML IV SCH (15:31)
[2019-08-29] MEDS ORDERED: BUPIVACAINE/EPINEPHRINE 0.25% 1:200,000 30 ML VIAL ONE (15:42)
[2019-08-29] MEDS ORDERED: ROCURONIUM BROMIDE 10 MG/ML 5 ML VIAL IV ONE ×2 (15:45→15:50)
[2019-08-29] MEDS ORDERED: LIDOCAINE HCL 2% 2 ML VIAL/AMP(20MG/ML) INFIL ONE (15:45)
[2019-08-29] MEDS ORDERED: PROPOFOL IV EMULSION 10 MG/ML 20 ML VIAL IV ONE (15:45)
[2019-08-29] MEDS ORDERED: MIDAZOLAM HCL 1 MG/ML 2ML VIAL ONE (15:45)
[2019-08-29] MEDS ORDERED: fentaNYL citrate 100 MCG/2 ML VIAL ONE ×2 (15:46→17:47)
[2019-08-29] MEDS ORDERED: ONDANSETRON INJ 2 MG/ML 2 ML VIAL ONE ×2 (15:56→18:01)
[2019-08-29] MEDS ORDERED: DEXAMETHASONE SOD INJ 4 MG/ML VIAL ONE ×2 (15:57)
--- NOTE | 2019-08-29 16:38 | Anesthesiology Consultation ---
Date of Service August 29, 2019 Assessment & Plan (1) Encounter for pre-operative examination: Chart Review Chart Review: Acceptable Risk for Surgery Consults Requested none ASA ASA2E Proposed Anesthesia Anesthesia Type: General Risk / Benefits Reviewed With: PT / POA / Parent / Guardian, Accepts Plan and Informed Consent Obtained History Surgery Operation Date: 08/29/19 12:55 Proposed Procedures p Laparoscopic Appendectomy - Brandon Flores, DO Height/Weight Height: 5 ft 7 in Weight: 77 kg Allergies Allergy/AdvReac Type Severity Reaction Status Date / Time No Known Allergies Allergy Verified 08/29/19 11:50 Medications Home Medications Medication Instructions Recorded Confirmed Last Taken prenat.vits,sebastian,ljv-ygvo-bqvem 1 tab PO DAILY 12/19/18 08/29/19 08/28/19 acetaminophen [Mapap 650 mg PO Q6H PRN #1 tab 07/24/19 08/29/19 08/28/19 (acetaminophen)] Active Medications Generic Name Dose Route Start Last Admin Trade Name Freq PRN Reason Stop Dose Admin Sodium Chloride 500 mls @ 125 mls/hr 08/29/19 15:15 08/29/19 15:31 Nss IV 09/28/19 15:14 125 mls/hr .Q4H LÓPEZ Administration Ioversol 92 ml 08/29/19 14:23 08/29/19 14:23 Optiray 320 100ml IV 09/02/19 14:22 92 ml ONCE PRN Administration Interaction Checking NPO Date Last Intake of Fluids: 08/29/19 Time Last Intake of Fluids: 12:45 Date Last Intake of Solids: 08/29/19 Time Last Intake of Solids: 08:00 Past Medical History Medical History Anxiety and depression no medications Encounter for anatomic survey Hx of varicella Normal labor Exercise / Class Metabolic Activity II 4-5 Yardwork/Stairs/Walk up hill Past Family History Family History Mother Hypertension Hypothyroidism Dyslipidemia Thyroid disease Grandmother (Paternal) Breast cancer HHT (hereditary hemorrhagic telangiectasia) Grandfather (Paternal) Myocardial infarction Grandfather (Maternal) Myocardial infarction Drinking problem Grandfather (Paternal) Diabetes Uncle Drinking problem Past Surgical History Surgical History S/P wisdom tooth extraction Past Anesthesia History No Hx of Anesthesia Complications and No Family Hx of Anesthesia Complications History of PONV No Hx of Motion Sickness Social History Smoking Status: Never smoker Hx Alcohol Use: No Hx Substance Use: No substance use type: does not use Review of Systems Negative for chest pain or shortness of breath. Denies N/V Physical Exam Vital Signs Last Vital Signs Temp 36.7 C 08/29/19 16:23 Pulse 81 08/29/19 16:23 Resp 16 08/29/19 16:23 BP 112/79 08/29/19 16:23 Pulse Ox 99 08/29/19 16:23 Constitutional not obese ENMT Mouth: + small oral opening; no TMJ abnormality Thyromental Distance: > or= 3.5 Finger Breadths Mallampati Class: III Neck normal visual inspection; neck extension not limited Respiratory normal respiratory effort Auscultation: lungs clear to auscultation bilaterally Cardiovascular Rate/Rhythm: regular rate and regular rhythm Heart Sounds: no murmur Neurologic moves all extremities Psychiatric Orientation: alert and oriented x 3 Testing Laboratory Results 08/29/19 12:20 08/29/19 12:20 Urine Color Yellow 08/29/19 12:20 Urine Appearance Cloudy (Clear) A 08/29/19 12:20 Urine pH 6.5 (4.5-7.5) 08/29/19 12:20 Ur Specific [place] 1.020 (1.000-1.030) 08/29/19 12:20 Urine Protein Trace (Negative) H 08/29/19 12:20 Urine Glucose (UA) Negative (Negative) 08/29/19 12:20 Urine Ketones Negative (Negative) 08/29/19 12:20 Urine Nitrite Negative (Negative) 08/29/19 12:20 Ur Leukocyte Esterase 3+ (Negative) H 08/29/19 12:20 Urine WBC (Auto) >30 /hpf (0-5) H 08/29/19 12:20 Urine RBC (Auto) 10-30 /hpf (0-4) H 08/29/19 12:20 U Hyaline Cast (Auto) 1-5 /lpf (0-5) 08/29/19 12:20 U Epithel Cells (Auto) 10-20 /lpf (0-5) H 08/29/19 12:20 Urine Bacteria (Auto) 1+ (Negative) H 08/29/19 12:20
[2019-08-29] MEDS ORDERED: ATROPINE SULFATE 0.1 MG/ML 10ML SYR IV PRN (17:18)
[2019-08-29] MEDS ORDERED: ONDANSETRON INJ 2 MG/ML 2 ML VIAL IV PRN ×2 (17:18→19:34)
[2019-08-29] MEDS ORDERED: fentaNYL citrate 100 MCG/2 ML VIAL IV PRN (17:18)
[2019-08-29] MEDS ORDERED: PROMETHAZINE HCL 12.5 MG in SODIUM CHLORIDE 0.9% 50 ML IV PRN (17:18)
[2019-08-29] MEDS ORDERED: ePHEDrine sulfate 50 MG/ML AMP IV PRN (17:18)
[2019-08-29] MEDS ORDERED: ePHEDrine sulfate 50 MG/ML AMP ONE (17:31)
[2019-08-29] MEDS ORDERED: KETOROLAC 30 MG/ML VIAL ONE (17:57)
--- NOTE | 2019-08-29 18:08 | Operative Report ---
PG Post Operative Report Pre & Post Diagnosis Operation Date: 08/29/19 12:55 Pre-Op Diagnosis: Acute appenditis Post-Op Diagnosis: Acute appenditis I identified the patient and participated in the time-out.: Yes Procedure Operation Date: 08/29/19 12:55 Actual Procedures p Laparoscopic Appendectomy - Brandon Flores DO Surgeon Brandon Flores DO Supervisor [employer] sada Sanchez Estimated Blood Loss 3 Findings Consistent with Post-Op Diagnosis Specimens appendix Description of Procedure After informed consent was obtained the patient was taken to the operating room and placed in supine position. After successful intubation a Osuna catheter was placed and the left arm was tucked. I began by making a periumbilical inc ision with an 11 blade scalpel and carried this down through the soft tissue using electrocautery. The anterior rectus fascia was opened using electrocautery and 2 #0 Vicryl stay sutures were placed. The peritoneum was elevated using hemostats and incised under direct vision using a Metzenbaum scissor. A finger sweep was performed. A 12 mm Dela Cruz trocar was placed and the abdomen was insufflated to 18 mmHg. A laparoscope was inserted and the abdomen was examined in 360. A suprapubic 5 mm port and a left lower quadrant 12 mm port were placed under direct vision. The patient was air planed to the left as well as placed in a slight Trendelenburg position. We began by looking in the right lower quadrant. We were able to readily identify the appendix and it was grossly inflamed. It had not perforated. There is a small amount of purulent fluid in the right lower quadrant and the pelvis. We immediately irrigated and suctioned this out. I was able to use primarily blunt dissection to pull the appendix away from the right lower quadrant sidewall. I was then able to use a SAFIA brown cartridge stapler to transect both the mesentery of the appendix with one firing as well as the appendix itself at its base with the cecum with a second firing. It was then placed into an Endo Catch bag and removed from the camera port site. We thoroughly irrigated the right lower quadrant as well as the pelvis. There was adequate hemostasis. I ran the small bowel backwards from the terminal ileum for about 6 feet all of which was normal. All the peritoneal surfaces were normal. Small/ large bowel, liver, stomach etc. all appeared grossly normal. We did a final irrigation and then removed all the trochars and desufflated the abdomen. The fascia of the camera port as well as the left lower quadrant were closed using 0 Vicryl in [id number] fashion. Wounds were all irrigated and closed using 4-0 Monocryl. Marcaine was injected around them for postoperative analgesia and s kin glue used as a dressing. The patient was awakened extubated and transferred to recovery in stable condition. My physician's web production assistant was present through the entire case. She assisted with prepping the patient and helped with exposure for port placement, helped run the camera and helped with fascial/wound closure at the end of the procedure as well as dressing placement. I attest to the content of the Intraoperative Record and any orders documented therein. Any exceptions are noted below. I attest to the content of the Intraoperative Record and any orders documented therein. Any exceptions are noted below.
--- NOTE | 2019-08-29 18:38 | Anesthesiology Progress Note ---
Date of Service August 29, 2019 Anesthesia Post Procedure Vital Signs Vital Signs: Temp Pulse Pulse Pulse Resp BP BP 08/29/19 18:30 83 15 122/69 08/29/19 18:24 36.6 C 111 H 16 138/72 08/29/19 16:23 36.7 C 81 16 112/79 08/29/19 15:35 36.5 C 96 H 19 134/67 08/29/19 13:47 78 70 20 107/65 08/29/19 12:48 76 20 95/66 L 08/29/19 11:10 37.2 C 125 H 20 117/81 Pulse Ox 08/29/19 18:30 100 08/29/19 18:24 100 08/29/19 16:23 99 08/29/19 15:35 100 08/29/19 13:47 100 08/29/19 12:48 95 08/29/19 11:10 98 Pain Intensity Right Hip: Pain Intensity: 4 Abdomen: Pain Intensity: 2 Transfer of Care Handoff Completed per policy Notes Mental Status: alert / awake / arousable and participated in evaluation Patient Amnestic to Procedure: Yes Nausea / Vomiting: adequately controlled Pain: adequately controlled Airway Patency, RR, SpO2: stable & adequate BP & HR: stable & adequate Hydration State: stable & adequate Anesthetic Complications: no major complications apparent and Pt Satisfied with anesthetic care
[2019-08-29] MEDS ORDERED: MoRPHine SULFATE 4 MG/ML 1 ML CARP\\VIAL IV PRN (19:34)
[2019-08-29] MEDS ORDERED: HYDROCODONE/ACETAMOPHEN 5/325MG TAB PO PRN (19:34)
[2019-08-29] MEDS ORDERED: MoRPHine SULFATE 10 MG/ML CARP/VIAL IV PRN (19:34)
[2019-08-29] MEDS ORDERED: Nursing to Pharmacy Communication SCH (21:45)
[2019-08-29] MEDS: PRENATAL VITAMIN 1 TAB PO SCH (23:24)
[2019-08-30] MEDS: HYDROCODONE/ACETAMOPHEN 5/325MG TAB PO PRN ×2 (00:01→06:36)
[2019-08-30] MEDS: LACTATED RINGER'S 1,000 ML IV SCH ×2 (02:35)
[2019-08-30] MEDS: SODIUM CHLORIDE 0.9% 500 ML IV SCH (04:45)
[2019-08-30 07:26] LABS: Hematocrit (blood only) 39.3 % (37-47); Hemoglobin 13.1 g/dL (12.0-16.0); Mean Corpuscular Hemoglobin 30.3 pg (25-34); Mean Corpuscular Hgb Conc 33.3 g/dL (32-36); Mean Platelet Volume 9.8 fL (7.4-10.4); Platelet Count 256 K/uL (130-400); RDW Coefficient of Variation 12.2 % (11.5-14.5); Red Blood Count 4.32 M/uL (4.2-5.4); White Blood Count 9.99 K/uL (4.8-10.8)
[2019-08-30 07:49] LABS: BUN Creatinine Ratio 13.4 (10-20); Calcium 8.9 mg/dl (8.5-10.1); Creatinine Clr Calc Pharmacy 114.4 ml/min; Est GFR (African American) 118.9; Est GFR (Non-African American) 102.6; Potassium 4.3 mmol/L (3.5-5.1)
--- NOTE | 2019-08-30 07:59 | Surgery Progress Note ---
Date of Service August 30, 2019 Assessment & Plan (1) Acute appendicitis: POD#1 laparoscopic appendectomy patient doing well, WBC 9.9 will advance to regular diet this AM surgical incisions c/d/i will plan for discharge to home today, follow up with Dr. Flores within 1-2 weeks patient given instructions regarding breast feeding at home as above. doing well. ok for d/c. instructions given. Subjective Patient had a decent night. Tolerated clear liquid diet. No nausea. Required some prn narcotic, but overall abdominal pain improving. Physical Exam Physical Exam: awake/alert Gastrointestinal (Abdomen): Inspection/Auscultation: + abdominal surgical incision (c/d/i with dermabond overtop); abdomen not distended Percussion/Palpation: abdomen soft; abdomen nontender Results & Data Vital Signs (Past 12 Hours) Vital Signs Temp Pulse Pulse Resp BP Pulse Ox 08/30/19 07:46 36.5 C 52 L 16 102/66 97 08/30/19 03:03 36.4 C L 65 16 112/74 97 08/29/19 23:15 36.8 C 93 H 16 101/67 96 08/29/19 21:16 36.7 C 85 18 101/63 97 08/29/19 20:38 36.7 C 69 19 102/65 96 PG Care Time/CCT Total # of Minutes Spent Total Time Spent with Patient: Total time spent is greater than 50% in coordination of care (as documented) at patient's floor/unit and/or counseling patient: Coding Level of Care Code None Diagnoses Acute appendicitis K35.30 Acute appendicitis type: with localized peritonitis Appendicitis abscess presence: without abscess Appendicitis gangrene presence: without gangrene Appendicitis perforation presence: without perforation (1) Acute appendicitis Acute appendicitis type: with localized peritonitis Appendicitis abscess presence: without abscess Appendicitis gangrene presence: without gangrene Appendicitis perforation presence: without perforation Qualified Code(s): K35.30 - Acute appendicitis with localized peritonitis, without perforation or gangrene
--- NOTE | 2019-08-30 08:36 | Anesthesiology Progress Note ---
Date of Service August 30, 2019 Anesthesia Post Procedure Vital Signs Vital Signs: Temp Pulse Pulse Pulse Pulse Resp BP 08/30/19 07:46 36.5 C 52 L 16 08/30/19 03:03 36.4 C L 65 16 08/29/19 23:15 36.8 C 93 H 16 08/29/19 21:16 36.7 C 85 18 08/29/19 20:38 36.7 C 69 19 08/29/19 19:15 69 16 08/29/19 19:00 75 16 08/29/19 18:50 36.6 C 70 16 08/29/19 18:40 66 15 08/29/19 18:30 83 15 08/29/19 18:24 36.6 C 111 H 16 08/29/19 16:23 36.7 C 81 16 08/29/19 15:35 36.5 C 96 H 19 08/29/19 13:47 78 70 20 08/29/19 12:48 76 20 08/29/19 11:10 37.2 C 125 H 20 117/81 BP Pulse Ox 08/30/19 07:46 102/66 97 08/30/19 03:03 112/74 97 08/29/19 23:15 101/67 96 08/29/19 21:16 101/63 97 08/29/19 20:38 102/65 96 08/29/19 19:15 112/57 L 96 08/29/19 19:00 116/68 97 08/29/19 18:50 113/70 97 08/29/19 18:40 119/68 100 08/29/19 18:30 122/69 100 08/29/19 18:24 138/72 100 08/29/19 16:23 112/79 99 08/29/19 15:35 134/67 100 08/29/19 13:47 107/65 100 08/29/19 12:48 95/66 L 95 08/29/19 11:10 98 Pain Intensity Right Hip: Pain Intensity: 4 Abdomen: Pain Intensity: 4 Notes Mental Status: alert / awake / arousable Patient Amnestic to Procedure: Yes Nausea / Vomiting: adequately controlled Pain: adequately controlled Airway Patency, RR, SpO2: stable & adequate BP & HR: stable & adequate Hydration State: stable & adequate Anesthetic Complications: no major complications apparent and Pt Satisfied with anesthetic care
[2019-08-30] MEDS: PRENATAL VITAMIN 1 TAB PO SCH (09:46)
--- NOTE | 2019-08-31 14:08 | Discharge Summary ---
Date of Service August 31, 2019 Admission HPI Per Admitting Provider This is a 28y F who is 5weeks post who presents to the [facility] ED on 08/29/19 with complaints of abdominal pain. Patient reports she woke up around 2am with abdominal pain. She thought it felt like cramps and went across the mid-abdomen. She took a Tums without relief. She came to the ED for further evaluation. Workup revealed a WBC of [address] a/p was obtained that revealed findings concerning for acute appendicitis. Patient states her pain is more in the right lower abdomen at this time. She said its sharp with movement rating it a 5/10 and is dull and less intense while lying down. She denies fevers/chills, nausea/vomiting, chest pain or shortness of breath. She last ate a bowl of cereal around 8am. She has no prior abdominal surgeries. Principal Diagnosis acute appendicitis Discharge Exam Respiratory normal respiratory effort Gastrointestinal (Abdomen) Inspection/Auscultation: + abdominal surgical incision (c/d/i with dermabond overtop); abdomen not distended Percussion/Palpation: abdomen soft; abdomen nontender and no guarding Discharge Data Allergies Allergy/AdvReac Type Severity Reaction Status Date / Time No Known Allergies Allergy Verified 08/29/19 11:50 Consultations 08/29/19 15:04 ED Decision to Admit Stat Procedures Performed Operation Date: 08/29/19 12:55 Actual Procedures p Laparoscopic Appendectomy - Brandon Flores DO Ordered Studies 08/29/19 12:01 CT abd pelvis IV con only Stat Hospital Course (1) Acute appendicitis: This is a 28yF who is 5 weeks post- presented to the [facility] ED on 08/29/19 with abdominal pain. Workup in the ED showed a WBC of [address] a/p concerning for acute appendicitis. The patient was tender to palpation in the RLQ. Patient made NPO with IVF and booked for the OR. On 08/28 the patient went to the OR with Dr. Flores for a laparoscopic appendectomy. The patient tolerated the procedure well, see operative report for full details. Post operatively the patient's diet was advanced as tolerated, pain managed on prn meds, and incisions clean/dry/intact. On 08/29 the patient was deemed stable for discharge to home. She was given instructions to follow up in clinic within 1-2 weeks. Patient was asked to not breast feed her baby for 24 hours after anesthesia or taking pain medication and she demonstrated understanding. Total Time Total Time Spent Total Time Spent (In Minutes): 10 Discharge Plan Discharge Items Patient Disposition: Home - Self-Care Reason For Visit: ABD PAIN -5 WEEKS POST Discharge Diagnosis: laparoscopic appendectomy Activity: Per Instructions section Lifting: No more than 10 pounds Bathing Comment: may shower; no soaking in tubs/pools Exercise/Sports: Wait until after follow-up appointment Non-emergency contact: Surgeon Call non-emergency contact if: you have any medication questions, your symptoms worsen, your pain is not controlled, your pain is worsening, your pain is unusual for you, you have a fever, your temperature is above 101.5, your wound has increased redness, your wound has increased drainage and your wound pain has increased Follow-up/Referrals: Manjinder Shore III, CRNP [Primary Care Provider] - Brandon Flores, [Surgeon] - (Please call to schedule a follow up appointment in clinic within 1-2 weeks) Diet: Regular Addtl Attending Provider Instructions: You should not breast feed your baby for 24 hours after anesthesia or pain medication. Please be aware that both the narcotic ([place]) that has been prescribed post operatively and Tylenol both contain Acetaminophen and that you should NOT exceed more than 3 grams of Acetaminophen within a 24 hour time period. Pending Studies at Discharge: Yes Studies:: surgical pathology Stand-Alone Forms: [facility], Opioid Pain Management Medications and DC Order Prescriptions: New hydrocodone-acetaminophen [[place]] 5-325 mg tablet 1 - 2 tab PO .q4-6h PRN (Reason: pain, for initial therapy, max 6 tabs per day) Qty: 15 RF: 0 Continued prenat.vits,sebastian,gov-fjti-kfwfl tablet 1 tab PO DAILY RF: 0 Discontinued acetaminophen [Mapap (acetaminophen)] 325 mg Tablet 650 mg PO Q6H PRN (Reason: fever or pain) Qty: 1 RF: 0 Discharge Orders: Discharge Order (Routine); Ordered 08/30/19 Ordered By: Bonnie Fraser/Other Patient Handouts: Preventing Deep Vein Thrombosis Admission Data Admit Date/Time: 08/29/19 18:40 Attending Provider: Brandon Flores Admit Provider: Brandon Flores Primary Care Provider: Manjinder Shore III Other Providers: Brandon Flores Other Interventions: Discharge Summary Assessment (RN) Last Done: 08/30/19 14:12 DC Date/Time DO NOT enter until pt leaves facility: 08/30/19 16:07 Coding Level of Care Code D/C Day Management <30 mins Diagnoses Acute appendicitis K35.30 Acute appendicitis type: with localized peritonitis Appendicitis abscess presence: without abscess Appendicitis gangrene presence: without gangrene Appendicitis perforation presence: without perforation
== END 2019-08-30 16:07 | disposition home or self-care (01) ==
LOC: ED 10:55 → 3N 16:21 → OR 16:21

== ENCOUNTER 2022-07-31 04:08 | Inpatient (IN) ==
[2022-07-31] MEDS ORDERED: ceFAZolin 2000MG 2,000 MG/15 ML SYR IV SCH (06:00)
[2022-07-31] MEDS ORDERED: CITRIC ACID/SODIUM CITRATE 15 ML UDC PO SCH (06:00)
[2022-07-31] MEDS ORDERED: LACTATED RINGER'S 1,000 ML IV SCH ×2 (06:30→09:08)
[2022-07-31 07:03] LABS: Basophils # (auto) 0.03 K/uL (0-0.2); Basophils % (auto) 0.3 %; Eosinophils # (auto) 0.02 K/uL (0-0.50); Eosinophils % (auto) 0.2 %; Hematocrit (blood only) 41.2 % (37.0-47.0); Immature Granulocytes # (auto) 0.03 K/uL (0.01-0.20); Immature Granulocytes % (auto) 0.3 %; Lymphocytes # (auto) 0.99 K/uL (1.2-3.4); Lymphocytes % (auto) 8.3 %; Mean Corpuscular Hemoglobin 31.3 pg (25.0-34.0); Mean Platelet Volume 9.5 fL (9.4-12.4); Monocytes # (auto) 0.51 K/uL (0.11-0.59); Monocytes % (auto) 4.3 %; Neutrophils # (auto) 10.37 K/uL (1.40-6.50); Neutrophils % (auto) 86.6 %; Platelet Count 257 K/uL (130-400); RDW Coefficient of Variation 13.4 % (11.5-14.5); RDW Standard Deviation 45.2 fL (36.4-46.3); Red Blood Count 4.48 M/uL (4.20-5.40); White Blood Count 11.95 K/ul (4.8-10.8)
--- NOTE | 2022-07-31 07:05 | Anesthesiology Consultation ---
Date of Service July 31, 2022 Assessment & Plan Chart Review Chart Review: Acceptable Risk for Surgery Consults Requested none ASA ASA2 Proposed Anesthesia Anesthesia Type: Spinal Risk / Benefits Reviewed With: PT / POA / Parent / Guardian, Accepts Plan and Informed Consent Obtained History Surgery Operation Date: 07/31/22 06:10 Proposed Procedures p Section in LD - Camille Deshpande MD, FACOG Height/Weight Height: 5 ft 7 in Weight: 87.997 kg Allergies Allergy/AdvReac Type Severity Reaction Status Date / Time No Known Allergies Allergy Verified 07/26/22 08:37 Medications Home Medications Medication Instructions Recorded Confirmed Last Taken prenat.vits,sebastian,gmq-pusr-cjbnc 1 tab PO DAILY 08/18/21 07/26/22 Unknown albuterol sulfate 90 mcg/actuation See Rx Instructions inhalation 01/11/22 07/26/22 Unknown aerosol inhaler (Ventolin HFA) .COMPLEX PRN shortness of breath or wheezing #8.5 grams Active Medications Generic Name Dose Route Start Last Admin Trade Name Freq PRN Reason Stop Dose Admin Lactated Ringer's 1,000 mls @ 999 mls/hr 07/31/22 06:30 07/31/22 06:20 Lr IV 07/31/22 07:30 999 mls/hr .Q1H1M LÓPEZ Administration NPO Date Last Intake of Fluids: 07/31/22 Time Last Intake of Fluids: 04:00 Date Last Intake of Solids: 07/30/22 Time Last Intake of Solids: 18:00 Past Medical History Medical History Acute appendicitis Anxiety and depression Encounter for anatomic survey Hx of varicella Left nephrolithiasis Normal labor Exercise / Class Metabolic Activity II 4-5 Yardwork/Stairs/Walk up hill Past Family History Family History Mother Hypertension Hypothyroidism Dyslipidemia Thyroid disease Grandmother (Paternal) Breast cancer HHT (hereditary hemorrhagic telangiectasia) Grandfather (Paternal) Myocardial infarction Grandfather (Maternal) Myocardial infarction Drinking problem Grandfather (Paternal) Diabetes Uncle Drinking problem Past Surgical History Surgical History S/P laparoscopic appendectomy (09/05/19) S/P wisdom tooth extraction Past Anesthesia History No Hx of Anesthesia Complications History of PONV No Hx of PONV Social History Smoking Status: Never smoker Do You Dip or Chew Tobacco: No Hx Alcohol Use: No Hx Substance Use: No substance use type: does not use Physical Exam Vital Signs Last Vital Signs Temp 36.8 C 07/31/22 04:45 Pulse 73 07/31/22 04:28 Resp 18 07/31/22 04:45 BP 126/72 07/31/22 04:28 Constitutional no acute distress ENMT Thyromental Distance: > or= 3.5 Finger Breadths Mallampati Class: II Neck normal visual inspection Respiratory normal respiratory effort; no respiratory distress Auscultation: lungs clear to auscultation bilaterally Cardiovascular Rate/Rhythm: regular rate and regular rhythm Heart Sounds: no murmur Psychiatric Orientation: alert and oriented x 3 Testing Laboratory Results 07/31/22 06:44
[2022-07-31] MEDS ORDERED: fentaNYL citrate PF 100 MCG/2 ML VIAL ONE (07:22)
[2022-07-31] MEDS ORDERED: MoRPHine SULFATE PF 1 MG/ML 10 ML AMP/VIAL ONE (07:40)
[2022-07-31] MEDS ORDERED: OXYTOCIN 10 UNITS/ML VIAL ONE (07:48)
[2022-07-31] MEDS ORDERED: ePHEDrine sulfate 50 MG/ML AMP IV PRN (08:02)
[2022-07-31] MEDS ORDERED: MoRPHine SULFATE PF 1 MG/ML 10 ML AMP/VIAL INT SPINAL ONE (08:02)
[2022-07-31] MEDS ORDERED: NALOXONE HCL 0.08 MG in SYRINGE 1.8 ML IV PRN (08:02)
[2022-07-31] MEDS ORDERED: PROMETHAZINE HCL 25 MG in SODIUM CHLORIDE 0.9% 50 ML IV PRN (08:02)
[2022-07-31] MEDS ORDERED: diphenhydrAMINE 50 MG/ML VIAL IV PRN (08:02)
[2022-07-31] MEDS ORDERED: NALOXONE HCL 0.4 MG/1 ML VIAL/CARP IV PRN (08:02)
[2022-07-31] MEDS ORDERED: ONDANSETRON INJ 2 MG/ML 2 ML VIAL IV PRN (08:02)
[2022-07-31] MEDS ORDERED: LACTATED RINGER'S 500 ML IV PRN (08:02)
[2022-07-31] MEDS ORDERED: NALBUPHINE HCL INJ 10 MG/ML AMP IV PRN (08:02)
[2022-07-31] MEDS ORDERED: NALOXONE HCL 1 MG in SODIUM CHLORIDE 0.9% 1000ML 1,000 ML IV PRN (08:02)
[2022-07-31] MEDS ORDERED: SODIUM CHLORIDE 0.9% 1000ML 1,000 ML IV SCH (08:15)
[2022-07-31] MEDS ORDERED: NO NARCOTICS OR SEDATIVES SCH (08:15)
[2022-07-31] MEDS ORDERED: DC INTRASPINAL MORPHINE SCH (08:15)
--- NOTE | 2022-07-31 08:19 | History & Physical Report ---
Date of Service July 31, 2022 Assessment & Plan (1) Breech presentation: Plan: IUP at 37 6/7 weeks with known breech presentation in labor. breech presentation confirmed by ultrasound today will proceed with primary section. the procedure and its risks were reviewed with the patient and her and all questions answered to their satisfaction. Admission and Anticipated Discharge Date Admission Date: July 31, 2022 History of Present Illness Primary Care Provider: Manjinder Shore III, CRNP Patient is a 31 yo EDC 08/15/22 who presents at 37 6/7 weeks in active labor with known breech presentation following failed external version. GBS- negative. Allergies Allergy/AdvReac Type Severity Reaction Status Date / Time No Known Allergies Allergy Verified 07/26/22 08:37 Home Medications Medication Instructions Recorded Confirmed Type prenat.vits,sebastian,her-uemx-yjwcw 1 tab PO DAILY 08/18/21 07/26/22 History albuterol sulfate 90 mcg/actuation See Rx Instructions inhalation 01/11/22 07/26/22 Rx aerosol inhaler (Ventolin HFA) .COMPLEX PRN shortness of breath or wheezing #8.5 grams Patient History Medical History Acute appendicitis Anxiety and depression Encounter for anatomic survey Hx of varicella Left nephrolithiasis Normal labor Surgical History S/P laparoscopic appendectomy (09/05/19) S/P wisdom tooth extraction Family History Mother Hypertension Hypothyroidism Dyslipidemia Thyroid disease Grandmother (Paternal) Breast cancer HHT (hereditary hemorrhagic telangiectasia) Grandfather (Paternal) Myocardial infarction Grandfather (Maternal) Myocardial infarction Drinking problem Grandfather (Paternal) Diabetes Uncle Drinking problem Social History Smoking Status: Never smoker Second Hand Exposure: No; Do You Dip or Chew Tobacco: No; Tobacco Cessation Education Requested by Patient: No Hx Alcohol Use: No Hx Substance Use: No Preferred Language: Nepali Communication Ability: Effective Visual Impairment: No Limitations Hearing Ability: Normal Cyber Software Engineer Required: No Beliefs That Will Affect Care: None marital status: marital status details: Frank Alfonso ([phone] Current Living Situation: Spouse and Family Current Living Situation Comment: and son 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: 1 Other Information That Helps Us Care for You: No Feels Safe at Home: Yes Safety Concerns: Feels Safe At This Time Childhood Exposure to Second-Hand Smoke: No Diet: regular Dental Care, Regularly: Yes Physical Activity Frequency: 3-4 Times per Week Seatbelt Use: always Sunscreen Use: Yes Assistive Devices: None Review of Systems All systems reviewed & are unremarkable except as noted in HPI & below Physical Exam Constitutional: WD/WN, vitals as above Psychiatric: A+Ox3, euthymic affect Genitourinary: OB Exam Abdomen: + breech and + regular contractions (Q 3 minutes) Manual OB Exam: + cervical dilation 3 cm, + cervical effacement 90% and + station -2 OB Exam Monitor Tracing: + external FHT monitor used, + external uterine monitor used, + category I and + normal FHT variability Results & Data Vital Signs (Past 12 Hours) Vital Signs Temp Pulse Resp BP 07/31/22 07:04 98.2 F 18 07/31/22 04:45 98.2 F 18 07/31/22 07:08 80 125/78 07/31/22 04:26 18 07/31/22 04:26 98.2 F 18 07/31/22 04:28 73 126/72 Code Status & VTE Plan VTE Prophylaxis Plan VTE Prophylaxis will be ordered: No Coding Level of Care Code None Diagnoses Breech presentation O32.1XX0
--- NOTE | 2022-07-31 08:36 | Post Operative Brief Note ---
PG Immediate Post Op with CF Date of Surgery July 31, 2022 Pre & Post Diagnosis Operation Date: 07/31/22 06:10 Pre-Op Diagnosis: 1. IUP at 37 weeks 2. Breech presentation 3. Labor Post-Op Diagnosis: Same I identified the patient and participated in the time-out.: Yes Procedure Operation Date: 07/31/22 06:10 Actual Procedures p Section in LD with the of a live female child at 0745. - Camille Deshpande MD, FACOG Surgeon Camille Deshpande MD, FACOG Brusher Tender Lis Schneider MD Estimated Blood Loss 500 Findings Consistent with Post-Op Diagnosis gravid uterus consistent with term , bilateral ovaries and Fallopian tubes are grossly normal. Specimens Specimen Description: A: Placenta-hold B: Cord blood Drains Osuna Catheter (inserted after spinal placed; Clear yellow urine noted upon inse rtion) Anesthesia Type Spinal Complications none Disposition Accompanied Patient To Recovery: Yes
[2022-07-31] MEDS ORDERED: HYDROCORTISONE ACETATE 25 MG SUPP PR PRN (09:08)
[2022-07-31] MEDS ORDERED: BENZOCAINE 20% AER SPR 82.5 GM CAN EXT PRN (09:08)
[2022-07-31] MEDS ORDERED: MAGNESIUM HYDROXIDE SUSP 30 ML UDC PO PRN (09:08)
[2022-07-31] MEDS ORDERED: DIPHTHERIA/TETANUS/PERTUSSIS Vaccine (Tdap, Age 7+yrs) 0.5mL SYR/VL IM ONE (09:08)
[2022-07-31] MEDS ORDERED: SENNA 8.6 MG TAB PO PRN (09:08)
--- NOTE | 2022-07-31 09:12 | Operative Report ---
PG Post Operative Report Pre & Post Diagnosis Operation Date: 07/31/22 06:10 Pre-Op Diagnosis: 1. IUP at 37 weeks 2. Breech presentation 3. Labor Post-Op Diagnosis: Same I identified the patient and participated in the time-out.: Yes Procedure Operation Date: 07/31/22 06:10 Actual Procedures p Section in LD with the of a live female child at 0745. - Camille Deshpande MD, FACOG Surgeon Camille Deshpande MD, FACOG Animal Husbandry Teacher Neil Schneider MD Estimated Blood Loss 500 Findings Consistent with Post-Op Diagnosis Gravid uterus consistent with term in size normal bilateral fallopian tubes and ovaries. Infant in the tessie breech presentation Specimens placenta to hold Drains Osuna catheter to straight drainage clear urine at the end of the case. Anesthesia Type Spinal Complications none Disposition Accompanied Patient To Recovery: Yes Indications Patient is a 31-year-old -0-0-1 white female EDC of 08/15/2022 who presents at 37-6/7 weeks in active labor with known breech presentation. She had an external version attempt several days ago which was unsuccessful. The is still in the breech presentation on ultrasound and exam. Since she is in active labor we will proceed with primary section as it had been planned for 39 weeks. Description of Procedure As the patient received adequate subarachnoid block she was prepped and draped in usual fashion. A low transverse skin incision was made with a scalpel and carried to the fascia with the same scalpel. The fascial incision was then extended with Jensen scissors and the edges were grasped with Bj clamps. The underlying rectus muscles were then bluntly divided off the overlying fascia. Rectus muscles were then bluntly divided in the midline and the underlying peritoneum elevated and entered bluntly. The bladder was then taken down off the anterior surface of the uterus and placed behind the bladder blade lower uterine segment was entered with a scalpel and extended transversely. There is clear fluid with ruptured membranes although she ruptured membranes shortly after her spinal was placed. That fluid was also clear. The was delivered from the tessie breech presentation with moderate fundal pressure. The female infant was vigorous and crying at delivery. The cord was clamped and cut and the handed off to the canned food reconditioning inspector in attendance. The placenta was expressed intact with a three-vessel cord. The uterus was exteriorized and covered with a clean lap sponge. There was some retained membranes were removed with a ring forcep. The uterine cavity was swept of any other remaining membranes and clot. Bleeding was controlled with dilute Pitocin and fundal massage. The uterus was then closed in a running locking imbricating fashion with 0 Monocryl in 2 layers. Hemostasis was noted to be excellent. The pos terior cul-de-sac was swept of some fluid and clot. The uterine incision was examined once more and continue to be hemostatic. Uterus was then placed back in the abdominal cavity and the gutters explored and found to be free of any clot or retained tissue. Some bleeding on the lower uterine segment was secured with the Bovie. The rectus muscles were then brought together on the midline with individual stitches of 0 Monocryl. The fascia was closed in a running fashion with 0 Vicryl. After irrigating the adipose layer, the skin edges were reapproximated with a subcuticular stitch of 3-0 Vicryl. Mother and were doing well after delivery and in stable condition upon arrival back in labor room. I attest to the content of the Intraoperative Record and any orders documented therein. Any exceptions are noted below. OB Procedure Charges 55108
--- NOTE | 2022-07-31 09:35 | Anesthesiology Progress Note ---
Date of Service July 31, 2022 Anesthesia Post Procedure Vital Signs Vital Signs: Temp Pulse Resp BP Pulse Ox O2 Del Method 07/31/22 09:02 18 07/31/22 09:22 16 07/31/22 09:12 18 07/31/22 08:52 16 07/31/22 08:42 16 07/31/22 08:32 18 07/31/22 08:22 36.5 C 18 Room Air 07/31/22 07:04 36.8 C 18 07/31/22 04:45 36.8 C 18 07/31/22 09:31 71 97 07/31/22 09:26 77 96 07/31/22 09:23 68 122/74 07/31/22 09:21 60 98 07/31/22 09:16 63 98 07/31/22 09:14 61 136/70 07/31/22 09:11 71 98 07/31/22 09:06 66 98 07/31/22 09:04 70 111/62 07/31/22 09:01 67 98 07/31/22 08:56 71 98 07/31/22 08:54 73 122/60 07/31/22 08:51 78 97 07/31/22 08:46 58 L 98 07/31/22 08:44 59 L 115/66 07/31/22 08:41 63 97 07/31/22 08:36 56 L 99 07/31/22 08:34 68 136/65 07/31/22 08:31 61 98 07/31/22 08:26 63 99 07/31/22 08:21 65 100 07/31/22 08:22 75 127/65 07/31/22 07:08 80 125/78 07/31/22 04:26 18 07/31/22 04:26 36.8 C 18 07/31/22 04:28 73 126/72 Pain Intensity Lower Abdomen: Pain Intensity: 4 Transfer of Care Handoff Completed per policy Notes Mental Status: alert / awake / arousable Patient Amnestic to Procedure: Yes Nausea / Vomiting: adequately controlled Pain: adequately controlled Airway Patency, RR, SpO2: stable & adequate BP & HR: stable & adequate Hydration State: stable & adequate Neuraxial Anesthesia: was administered and sensory block is resolving Anesthetic Complications: no major complications apparent
[2022-07-31] MEDS: OXYTOCIN 20 UNITS in LACTATED RINGER'S 1,000 ML IV SCH ×2 (10:02→18:15)
[2022-07-31] MEDS: KETOROLAC 30 MG/ML VIAL IV PRN ×2 (10:09→18:14)
[2022-07-31] MEDS: SIMETHICONE 80 MG CHEW PO SCH ×3 (12:28→20:13)
[2022-07-31] MEDS: DOCUSATE SODIUM 100 MG CAP PO SCH (20:13)
[2022-08-01] MEDS: KETOROLAC 30 MG/ML VIAL IV PRN (00:38)
[2022-08-01] MEDS ORDERED: ONDANSETRON INJ 2 MG/ML 2 ML VIAL IV PRN (02:03)
[2022-08-01] MEDS ORDERED: diphenhydrAMINE Capsule 25 MG CAP PO PRN (02:03)
[2022-08-01] MEDS ORDERED: PROMETHAZINE HCL 25 MG in SODIUM CHLORIDE 0.9% 50 ML IV PRN (02:03)
[2022-08-01] MEDS ORDERED: diphenhydrAMINE 50 MG/ML VIAL IV PRN (02:03)
[2022-08-01] MEDS ORDERED: KETOROLAC 30 MG/ML VIAL IV PRN (02:03)
[2022-08-01 06:21] LABS: Basophils # (auto) 0.02 K/uL (0-0.2); Basophils % (auto) 0.2 %; Eosinophils # (auto) 0.14 K/uL (0-0.50); Eosinophils % (auto) 1.4 %; Hematocrit (blood only) 36.8 % (37.0-47.0); Hemoglobin 12.8 g/dl (12.0-16.0); Immature Granulocytes # (auto) 0.03 K/uL (0.01-0.20); Immature Granulocytes % (auto) 0.3 %; Lymphocytes % (auto) 10.3 %; Mean Corpuscular Hemoglobin 31.3 pg (25.0-34.0); Mean Corpuscular Hgb Conc 34.8 g/dL (32.0-36.0); Monocytes # (auto) 0.69 K/uL (0.11-0.59); Monocytes % (auto) 7.1 %; Neutrophils # (auto) 7.82 K/uL (1.40-6.50); Neutrophils % (auto) 80.7 %; Platelet Count 224 K/uL (130-400); RDW Coefficient of Variation 13.6 % (11.5-14.5); RDW Standard Deviation 44.4 fL (36.4-46.3); Red Blood Count 4.09 M/uL (4.20-5.40)
[2022-08-01] MEDS: IBUPROFEN 600 MG TAB PO PRN ×3 (06:55→22:07)
--- NOTE | 2022-08-01 07:33 | Obstetrical Progress Note ---
Date of Service August 01, 2022 Assessment & Plan (1) Failed external cephalic version: pod 1 c/s well Subjective Ambulation: ambulating normally Voiding: no voiding problems Diet Tolerance:: regular diet Lochia:: Small Feeding Type:: breast feeding Current Pain Level(1-10): 3 Results & Data Vital Signs (Past 12 Hours) Vital Signs Temp Pulse Pulse Resp BP Pulse Ox O2 Del Method 08/01/22 04:30 97.9 F 73 18 122/83 98 Room Air 08/01/22 02:05 18 98 08/01/22 01:04 18 96 08/01/22 00:00 16 97 07/31/22 23:02 18 97 07/31/22 23:02 98.6 F 81 18 116/76 97 Room Air 07/31/22 21:57 18 95 07/31/22 20:00 Room Air 07/31/22 20:00 98.1 F 80 18 116/74 97 Room Air 07/31/22 21:00 20 99 07/31/22 20:00 18 97
[2022-08-01] MEDS: FERROUS SULFATE 325 MG TAB PO SCH (08:20)
[2022-08-01] MEDS: SIMETHICONE 80 MG CHEW PO SCH ×4 (08:20→20:33)
[2022-08-01] MEDS: PRENATAL VITAMIN 1 TAB PO SCH (08:20)
[2022-08-01] MEDS: DOCUSATE SODIUM 100 MG CAP PO SCH ×2 (08:20→20:33)
[2022-08-01] MEDS: oxyCODONE/ACETAMINOPHEN 5mg/325mg TAB PO PRN ×2 (08:21→17:24)
[2022-08-01] MEDS ORDERED: bisacodyL 5 MG TABEC PO SCH (20:00)
[2022-08-02] MEDS: oxyCODONE/ACETAMINOPHEN 5mg/325mg TAB PO PRN ×2 (00:23→14:26)
[2022-08-02] MEDS: IBUPROFEN 600 MG TAB PO PRN ×3 (02:52→11:10)
--- NOTE | 2022-08-02 07:19 | Obstetrical Progress Note ---
Date of Service August 02, 2022 Assessment & Plan (1) care following delivery: (2) Breech presentation: Plan - Overall, feeling well and eating well today - feeding going well without concern - Urinating and passing gas appropriately - Ambulating well in room - Pain controlled w/ Ibuprofen/Percocet - Incision clean and dry - Hgb 12.8 on 08/01 - Vitals stable and wnl - Routine PP care progressing well - Anticipate discharge @ 48-72 hours PP - Recommending f/u outpatient in 6 weeks Admission and Anticipated Discharge Date Admission Date: July 31, 2022 Supervising Physician Co-Signing Physician Notes Resident Physician Supervision Note: I was present with Dr. Anderson during the history and exam. I discussed the case with the resident and agree with the findings and plan as documented in the note. Any exceptions or clarifications are listed here: [None] Documented By: Lis Schneider MD, FACOG Subjective Patient is a 31F who is POD #2 following delivery at 37 6/7. She reports feeling well overall this morning. - Ambulation - well throughout room - Voiding/Osuna - independent voids, no dysuria or pressure - Gas/Stool - passing gas, no bowel movement - Diet - regular, no nausea or emesis - Lochia - diminishing, light amount - Feeding Type - breast feeding - Pain Level - 3/10 (worse with BF), controlled with Ibuprofen Review of Systems - Denies fever, chills, sweats - Denies shortness of breath, difficulty breathing, chest pain, palpitations, chest pressure. - Denies breast pain. - Denies dysuria. - Denies headache or changes in vision. Physical Exam Physical Exam: General: Alert, oriented. No acute distress. Cardiac: RRR, normal S1/S2, no murmurs/rubs/gallops. Respiratory: Non-labored, CTAB, no wheezes/rales/rhonchi. Symmetric chest rise. Abdomen: Soft, nontender, nondistended. Bowel sounds present. Uterus: Uterine fundus firm, palpable 1 cm below umbilicus. Incision clean and dry w/o erythema or purulence. Lower Extremities: No lower extremity edema or swelling. No deep calf pain. Becky's negative bilaterally. Results & Data Vital Signs (Past 12 Hours) Vital Signs Temp Pulse Resp BP Pulse Ox O2 Del Method 06/18/23 23:30 36.5 C 73 18 120/80 96 Room Air 08/01/22 20:00 36.5 C 89 16 135/84 97 Room Air Resident Activity Tracking Resident Involvement: Resident Care Provided Care Provided: OB Delivery
[2022-08-02 07:32] LABS: Hematocrit (blood only) 36.7 % (37.0-47.0); Hemoglobin 12.4 g/dl (12.0-16.0)
[2022-08-02] MEDS: PRENATAL VITAMIN 1 TAB PO SCH (07:52)
[2022-08-02] MEDS: DOCUSATE SODIUM 100 MG CAP PO SCH (07:52)
[2022-08-02] MEDS: SIMETHICONE 80 MG CHEW PO SCH ×2 (07:52→14:26)
[2022-08-02] MEDS: FERROUS SULFATE 325 MG TAB PO SCH (07:52)
[2022-08-02] MEDS ORDERED: bisacodyL 10 MG SUPP PR PRN (08:16)
--- NOTE | 2022-08-04 11:10 | Discharge Summary ---
Date of Service August 04, 2022 Admission HPI Per Admitting Provider Patient is a 31 yo EDC 08/15/22 who presents at 37 6/7 weeks in active labor with known breech presentation following failed external version. GBS- negative. Admission Exam (Per Admitting) Constitutional WD/WN, vitals as above Psychiatric A+Ox3, euthymic affect Genitourinary OB Exam Abdomen: + breech and + regular contractions (Q 3 minutes) Manual OB Exam: + cervical dilation + 3 cm, + cervical effacement + 90% and + station + -2 OB Exam Monitor Tracing: + external FHT monitor used, + external uterine monitor used, + category I and + normal FHT variability Discharge Data Consultations 07/31/22 06:23 Consult Anesthesiology Stat Procedures Performed Operation Date: 07/31/22 06:10 Actual Procedures p Section in LD with the of a live female child at 0745. - Camille Deshpande MD, [facility] Course (1) care following delivery: Patient had an uncomplicated postop and course. She remained afebrile throughout her hospital stay, she was ambulating and voiding without difficulty on her first hospital day. She is tolerating regular diet and pain was well controlled with oral ibuprofen prior to her discharge. She was sent home in good condition with the usual and postoperative instructions. Discharge Plan Discharge Items Patient Disposition: Home - Self-Care Reason For Visit: LABOR Discharge Diagnosis: C/S Activity: Per Instructions section Non-emergency contact: Mask Design Engineer Call non-emergency contact if: your pain is not controlled Follow-up/Referrals: Manjinder Shore III, CRNP [Primary Care Provider] - Diet: Regular OB Addtl Attending Provider Instructions: ACTIVITY RECOMMENDATIONS: * Gradual return to full activity over the next 2-3 weeks. * No lifting - nothing heavier than baby over the next 2-3 weeks. * Do not engage in vigorous exercise, sexual activity or sports until cleared by your physician. * Do not drive or operate any motorized equipment until cleared by your physician. * You may shower/bathe daily. MEDICATIONS: For discomfort or pain, you may use Acetaminophen (Tylenol), Ibuprofen (Advil), or Naproxen (Aleve) following the package directions. For constipation you may use Colace following the package directions. BREAST CARE: If you are not breast feeding: * Wear a supportive bra 24 hours a day for one to two weeks. * Avoid stimulating your breasts and nipples as much as possible during the first few weeks after delivery. * When taking a shower, have the warm water hit your back, not breasts. * When your breasts feel full, apply ice packs. Usually three to four times a day helps ease the discomfort. * Take a mild pain medication (Tylenol / Motrin) when you are uncomfortable. If breast feeding: * Use breast milk to lubricate nipples. Lansinoh cream may be used for sore nipples. You do not need to remove cream prior to breast feeding. If using a different brand of cream, check the label for directions regarding removal of cream prior to nursing. * Wear a supportive bra. * If having problems with breasts or breast feeding, call a strategic consultant or your health care provider. SPECIAL CARE INSTRUCTIONS: When you are discharged from the hospital, it is important for you to follow the instructions listed below: * During the first week at home, you should be able to care for yourself and your baby. In addition, the usual light household activities are encouraged. * Limit your activities to the way you feel. Do not try to clean the house or move furniture. Be sensible. * If you actively engage in sports and have done so up until the time of your delivery, you may resume these activities as soon as you feel able. This may take up to one month or even longer. Use good judgment. * Continue to take your vitamins for at least six weeks after the of your baby. * Your diet need not be limited unless you were on a special diet before your delivery. Breast-feeding mothers need around 2500 calories per day and at least 64-80 ounces of fluid per day (8 to 10 glasses). * You should eat foods from the four major food groups. Crash diets or fad diets are to be avoided. Eating lean meats, fresh fruits and vegetables, low-fat dairy products, high fiber foods and a regular exercise program, will help you get back to your pre- weight without putting your health at risk. * Constipation is sometimes a problem after delivery. Take a mild laxative as needed. If breast feeding, Milk of Magnesia is acceptable to use. You may use a suppository or Fleets enema. * A daily shower or tub bath is suggested. Wash incision daily with warm soapy water and pat dry. It doesn't need to be covered unless drainage is present. * A bloody vaginal discharge will usually continue until around four weeks . A small amount of bleeding may continue for as long as six weeks. Vaginal discharge changes from the bright red bleeding after delivery to pink then brownish and finally yellowish-pink before becoming white and disappearing. * Bleeding may increase with activity. Your first period may come in 4-8 weeks. If you are breast feeding, your period may be delayed even longer. * [place] (sex) can begin whenever both you and your partner feel comfortable and do not have any form of genital infection. It is recommended that you wait at least six weeks for internal and external healing to occur. If you have questions, please talk to your health care practitioner. A condom should be used to prevent infection and . * Foreplay, gentle intercourse and lubrication is very important the first several times to prevent pain. A water-based lubricant such as K-Y jelly or Astroglide may be used. * If you have RH negative blood and your baby is RH positive, you will receive RHOGAM by injection prior to discharge. The nurse will give you a card to keep with you that has the date and place that you received RHOGAM after delivery. * During your care, you had a Rubella screen done to check for the presence of rubella antibodies in your blood. If your test was negative, you will receive a Rubella vaccine prior to discharge. This vaccine may cause a fever, soreness at the injection site and flu-like symptoms. If these symptoms persist, notify your health care practitioner. is not advised for one month after a Rubella vaccine. * Verbalizes understanding of car seat law as reviewed with patient nursing. * Car Seat hand-out given and reviewed with patient by nursing. * Shaken baby information reviewed with patient by nursing. Call you doctor if: * Heavy bleeding (saturating several pads an hour) or passing clots the size of your fist. * A fever >101 degrees F (38.3 degrees C) on two occasions four hours apart and/or chills. * Unusual pain in the pelvic or vaginal areas. * Call the doctor for any increased redness, drainage or swelling around the incision and any pain unrelieved by prescribed pain medication. * "Baby Blues" lasting longer than two weeks. If you have any questions or concerns, call your health care practitioner at . FOLLOW UP VISIT: * Please call the office at to schedule a 6 week examination. It is important you keep this appointment. It is important for you to make arrangements for either yearly or twice yearly check-ups thereafter. Pending Studies at Discharge: No Stand-Alone Forms: My [facility], Smoking Cessation Medications and DC Order Prescriptions: New oxycodone-acetaminophen [Percocet] 5-325 mg tablet 1 tab PO Q6H PRN (Reason: pain) Qty: 20 0RF ibuprofen 600 mg tablet 600 mg PO Q8H PRN (Reason: pain) Qty: 20 0RF Continued albuterol sulfate [Ventolin HFA] 90 mcg/actuation HFA aerosol inhaler See Rx Instructions inhalation .COMPLEX PRN (Reason: shortness of breath or wheezing) Qty: 8.5 0RF Rx Instructions: 1-2 INH 4-6 PRN; prenat.vits,sebastian,ohc-ydyb-sbaxp Tablet 1 tab PO DAILY Discharge Orders: Discharge Order (Routine); Ordered 08/02/22 Ordered By: Lis Fraser/Other Patient Handouts: DVT in , Understanding Depression Admission Data Admit Date/Time: 07/31/22 06:23 Attending Provider: Camille Deshpande Admit Provider: Camille Deshpande Primary Care Provider: Manjinder Shore III Other Providers: Ty Leone Other Interventions: Discharge Summary Assessment (RN) Last Done: 08/02/22 13:19 Coding Level of Care Code None Diagnoses care following delivery Z39.2
== END 2022-08-02 15:00 | disposition home or self-care (01) | DRG 788 ==
LOC: OPB 04:08 → 4S1 04:10 → 4E2 11:13
DX: O32.1XX0 Maternal care for breech presentation, not applicable or unspecified; Z79.899 Other long term (current) drug therapy; Z37.0 Single live birth; Z3A.37 37 weeks gestation of pregnancy

== ENCOUNTER 2024-06-20 18:00 | Inpatient (IN) ==
[2024-06-20 18:33] LABS: Basophils # (auto) 0.03 K/uL (0.00-0.20); Basophils % (auto) 0.2 %; Eosinophils # (auto) 0.11 K/uL (0.00-0.50); Eosinophils % (auto) 0.8 %; Hematocrit (blood only) 45.1 % (37.0-47.0); Hemoglobin 15.2 g/dl (12.0-16.0); Immature Granulocytes # (auto) 0.06 K/uL (0.01-0.20); Immature Granulocytes % (auto) 0.4 %; Lymphocytes # (auto) 1.45 K/uL (1.20-3.40); Lymphocytes % (auto) 10.3 %; Mean Corpuscular Hemoglobin 29.7 pg (25.0-34.0); Mean Corpuscular Hgb Conc 33.7 g/dL (32.0-36.0); Mean Corpuscular Volume 88.3 fL (80.0-100.0); Mean Platelet Volume 9.4 fL (9.4-12.4); Monocytes # (auto) 0.57 K/uL (0.11-0.59); Neutrophils # (auto) 11.91 K/uL (1.40-6.50); Neutrophils % (auto) 84.3 %; Platelet Count 277 K/uL (130-400); RDW Coefficient of Variation 12.5 % (11.5-14.5); RDW Standard Deviation 40.3 fL (36.4-46.3); Red Blood Count 5.11 M/uL (4.20-5.40); White Blood Count 14.13 K/ul (4.8-10.8)
[2024-06-20 18:52] LABS: Albumin Globulin Ratio 1.6 (0.9-2); Albumin Level 4.7 gm/dl (3.4-5.0); BUN Creatinine Ratio 20.2 (10-20); Bilirubin,Total 0.5 mg/dl (0.2-1.0); Calcium 9.3 mg/dl (8.6-10.3); Creatinine Clr Calc Pharmacy 96.1 ml/min; Globulin 2.9 gm/dl (2.5-4.0); Potassium 3.7 mmol/L (3.5-5.1); Total Protein 7.6 gm/dl (6.0-8.3)
[2024-06-20 18:58] LABS: Troponin I High Sensitivity 3.3 pg/ml (0-14)
--- NOTE | 2024-06-20 18:59 | XRay Report ---
INDICATION: Chest pain. TECHNIQUE: Frontal radiograph of the chest. COMPARISON: None. FINDINGS: The cardiomediastinal silhouette and pulmonary vasculature appear within normal limits. No infiltrate, pleural effusion or pneumothorax. No acute osseous abnormality evident. IMPRESSION: No acute cardiopulmonary process. Electronically signed by Emiliano Cruz 06-20-2024 6:59 PM
[2024-06-20 19:01] LABS: Appearance Urine Clear (Clear); Bacteria Urine Automated None Seen (None Seen); Bilirubin Urine Negative (Negative); Blood Urine Negative (Negative); Cast Urine Automated 0-2 /lpf (0-2); Color Urine Yellow; Glucose Urine UA Negative (Negative); Ketones Urine Trace (Negative); Leukocyte Esterase Urine Negative (Negative); Nitrite Urine Negative (Negative); Protein Urine Trace (Negative); RBC Urine Automated 0-2 /hpf (0-2); Specific Gravity Urine 1.032 (1.000-1.030); Urobilinogen Urine Negative (Negative); WBC Urine Automated 0-5 /hpf (0-5); pH Urine 5.5 (4.5-7.5)
[2024-06-20 20:46] LABS: Hep B Surface Ag with confirm Negative (Negative)
[2024-06-20 20:48] LABS: Thyroid Stimulating Hormone 3.031 uIu/ml (0.300-4.500)
[2024-06-20 20:51] LABS: Hep C Ab Rflx HepCQuant RNA Negative (Negative)
--- NOTE | 2024-06-20 23:04 | Emergency Department Note ---
ED Provider Note History of Present Illness Chief Complaint: Chest Pain Stated Complaint: CHEST PAIN,REF BY PCP Time Seen by Provider: 06/20/24 19:05 33-year-old female who presents the emergency department with complaint of lower central chest discomfort that has been intermittent for the past month. The patient reports that she first noticed the discomfort on. She reports that it felt like an initial sharp sensation without any reproducible symptoms. She did not notice any shortness of breath, nausea or sweatiness. She reports that the pain did go away after several minutes. The patient reports that this past week, the pain returned again. She was sent to see her PCP today, who recommend that she come to the emergency department for further cardiac workup. The patient denies any personal or strong family history of heart disease. Patient also denies any thyroid disorders. The patient reports that sometimes it feels like her heart is beating more strongly. She denies any shortness of breath. She denies any risk factors for blood clots when reviewed with her. Patient denies any history of reflux. She also denies any alcohol, NSAIDs or Tylenol use. She denied any discomfort on my exam. Home Medications Medication Instructions Recorded Confirmed Type Bacillus coagulans 250 million 250 mmu cells PO DAILY 04/18/24 06/20/24 History cell chewable tablet (Digestive Advantage Probiotic Gummy) vit A 300 mcg-vit C 45 mg-vit D3 1 tab PO DAILY 04/18/24 06/20/24 History 10 mcg-vit [id number] 352 chew tablet (Alive Immune Elderberry) Allergies Allergy/AdvReac Type Severity Reaction Status Date / Time No Known Allergies Allergy Verified 06/20/24 19:23 Past Med/Surg History Problem List (Updated 06/20/24 @ 23:28 by Stevan Waldrop) Gallstones (Acute) Elevated LFTs (Acute) Frequent unifocal PVCs (Acute) Atypical chest pain (Acute) Medical History Failed external cephalic version Breech presentation Depression Left nephrolithiasis Acute appendicitis Normal labor Anxiety and depression no medications Hx of varicella Encounter for anatomic survey Surgical History S/P laparoscopic appendectomy (09/05/19) Laparoscopic Appendectomy Dr. Flores 09/05/19 S/P wisdom tooth extraction Family History Mother Hypertension Hypothyroidism Dyslipidemia Thyroid disease Grandmother (Paternal) Breast cancer HHT (hereditary hemorrhagic telangiectasia) Grandfather (Paternal) Myocardial infarction Grandfather (Maternal) Myocardial infarction Drinking problem Grandfather (Paternal) Diabetes Uncle Drinking problem Social History Smoking Status: Never smoker Second Hand Exposure: No; Do You Dip or Chew Tobacco: No; Hx Alcohol Use: Yes Alcohol type: wine Alcohol Intake Frequency: 2-4 x/Month Hx Substance Use: No Preferred Language: Tristanian Communication Ability: Effective Visual Impairment: No Limitations Hearing Ability: Normal Reporting Process Consultant Required: No Beliefs That Will Affect Care: None marital status: marital status details: Frank Alfonso (32) [phone] Current Living Situation: Spouse and Family Current Living Situation Comment: and son 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: 2 Feels Safe at Home: Yes Childhood Exposure to Second-Hand Smoke: No Diet: regular caffeine: Yes Dental Care, Regularly: Yes Physical Activity Frequency: 3-4 Times per Week Seatbelt Use: always Sunscreen Use: Yes Assistive Devices: None Physical Exam Vital Signs Vital Signs - 24 hr 06/20/24 18:04 06/20/24 18:07 06/20/24 18:45 Temperature 36.6 C Temperature Source Temporal Artery Scan Pulse Rate 75 79 74 Pulse Rate [Apical] Pulse Rate from SpO2 Sensor Pulse Rhythm Regular Respiratory Rate 20 20 Respiratory Effort / Characteristics Non-Labored Spontaneous Respiratory Depth Normal Respiratory Pattern Regular Blood Pressure 145/84 H Blood Pressure [Right Arm] Blood Pressure Mean 104 Blood Pressure Mean [Right Arm] Blood Pressure Position Sitting Pulse Oximetry 100 99 Oxygen Delivery Method Room Air Room Air Sepsis Recent Fever Within 48 Hours No Sepsis New/Unexplained Change in Mental Status N/A Sepsis Action Taken by Nursing No Action Required 06/20/24 19:00 06/20/24 20:00 06/20/24 20:03 Temperature Temperature Source Pulse Rate 75 72 Pulse Rate [Apical] 81 Pulse Rate from SpO2 Sensor Pulse Rhythm Respiratory Rate 19 18 19 Respiratory Effort / Characteristics Respiratory Depth Respiratory Pattern Blood Pressure 135/71 118/72 Blood Pressure [Right Arm] 118/72 Blood Pressure Mean 96 87 Blood Pressure Mean [Right Arm] 87 Blood Pressure Position Pulse Oximetry 98 98 Oxygen Delivery Method Sepsis Recent Fever Within 48 Hours Sepsis New/Unexplained Change in Mental Status Sepsis Action Taken by Nursing 06/20/24 21:01 06/20/24 22:00 06/20/24 22:45 Temperature Temperature Source Pulse Rate 83 69 83 Pulse Rate [Apical] Pulse Rate from SpO2 Sensor 48 L Pulse Rhythm Respiratory Rate 19 19 Respiratory Effort / Characteristics Respiratory Depth Respiratory Pattern Blood Pressure 108/71 126/58 L Blood Pressure [Right Arm] Blood Pressure Mean 88 80 Blood Pressure Mean [Right Arm] Blood Pressure Position Pulse Oximetry 98 96 Oxygen Delivery Method Sepsis Recent Fever Within 48 Hours Sepsis New/Unexplained Change in Mental Status Sepsis Action Taken by Nursing 06/20/24 23:00 Temperature Temperature Source Pulse Rate 79 Pulse Rate [Apical] Pulse Rate from SpO2 Sensor Pulse Rhythm Respiratory Rate 20 Respiratory Effort / Characteristics Respiratory Depth Respiratory Pattern Blood Pressure 125/63 Blood Pressure [Right Arm] Blood Pressure Mean 92 Blood Pressure Mean [Right Arm] Blood Pressure Position Pulse Oximetry 96 Oxygen Delivery Method Sepsis Recent Fever Within 48 Hours Sepsis New/Unexplained Change in Mental Status Sepsis Action Taken by Nursing CONSTITUTIONAL: Healthy and well nourished. Alert and oriented X 3. Patient does not appear in any acute distress. HEENT: No scleral icterus or conjunctival injection. RESPIRATORY: Clear to auscultation bilaterally with no wheezing, crackles, rhonchi or stridor. CARDIOVASCULAR: Regular rate and rhythm with no murmurs, rubs or gallops. GASTROINTESTINAL: Bowel sounds present in all quadrants. Abdomen is soft and nontender to palpation. MUSCULOSKELETAL: No tenderness to palpation of the costochondral joints or anterior chest wall. INTEGUMENTARY: No rash or other significant dermatologic conditions noted. HEMATOLOGIC: No ecchymosis or petechiae. PSYCHIATRIC: Positive affect. NEUROLOGIC: No focal neurologic deficits noted. Course Course Patient was seen during a period of high volume and acuity of patients. Triage protocol orders were placed and started prior to my exam. An initial ECG was performed and was normal. The patient was placed on surveillance system monitor while in the emergency department. Initial lab work was also ordered and mostly completed prior to my exam, showing a mild leukocytosis. CMP shows normal electrolytes. She does have elevated LFTs with no prior elevations when looking at prior labs. Glucose is also mildly elevated at 127. Lipase and TSH are normal. Troponin was also normal. Urinalysis does not show any hematuria or signs of infection. After reviewing initial labs, I did go back and examined the patient. I did ask about risks factors for her elevated LFTs, again denying any use of alcohol or Tylenol. I did recommend an ultrasound of the right upper quadrant to assess for other possible abnormalities, and the patient was in agreement. While awaiting for her to go to ultrasound, the patient's nurse then came to me with a new ECG, stating that she walked by the room and saw that she was in a bigeminal rhythm. An ECG was reviewed showing frequent unifocal PVCs. When I went back to discuss findings with the patient, she had already gone back into a sinus rhythm. The patient was further observed on cardiac monitoring, again showing that she continued to flip [id number] between primarily ventricular bigeminy and normal sinus rhythm. The patient denied any symptoms when this happened. I did discuss ECG findings with Dr. Young, ED attending physician. At this point, he recommended outpatient management with cardiology. I did review the paint laboratory technician notes, showing a distended gallbladder with gallstones, however no pericholecystic fluid, gallbladder wall thickening or common bile duct dilatation. Official radiologist report was still pending. At this point, patient care was transferred to Karie Zayas PA-C at change of shift. If cholecystitis is not seen, the patient will likely need referral for outpatient management by general surgery and cardiology. Please see Mrs. Zayas's dictation for further treatment and final disposition. Medical Decision Making Medical Records Attestation: I reviewed the patient's medical records. Home Medications was personally reviewed by me Laboratory Data Attestation: I reviewed the patient's lab results. 06/20/24 18:14 06/20/24 18:14 Lab Results 06/20/24 06/20/24 Range/Units 18:14 18:42 WBC 14.13 H (4.8-10.8) K/ul RBC 5.11 (4.20-5.40) M/uL Hgb 15.2 (12.0-16.0) g/dl Hct 45.1 (37.0-47.0) % MCV 88.3 (80.0-100.0) fL MCH 29.7 (25.0-34.0) pg MCHC 33.7 (32.0-36.0) g/dL RDW Std Deviation 40.3 (36.4-46.3) fL RDW Coeff of Gareth 12.5 (11.5-14.5) % Plt Count 277 (130-400) K/uL MPV 9.4 (9.4-12.4) fL Immature Gran % (Auto) 0.4 % Neut % (Auto) 84.3 % Lymph % (Auto) 10.3 % [place] % (Auto) 4.0 % Eos % (Auto) 0.8 % Baso % (Auto) 0.2 % Neut # (Auto) 11.91 H (1.40-6.50) K/uL Lymph # (Auto) 1.45 (1.20-3.40) K/uL [place] # (Auto) 0.57 (0.11-0.59) K/uL Eos # (Auto) 0.11 (0.00-0.50) K/uL Baso # (Auto) 0.03 (0.00-0.20) K/uL Immature Gran # (Auto) 0.06 (0.01-0.20) K/uL Sodium 140 (136-145) mmol/L Potassium 3.7 (3.5-5.1) mmol/L Chloride 105 (98-107) mmol/L Carbon Dioxide 29 (21-32) mmol/L Anion Gap 6 (3-11) BUN 19 (6-23) mg/dl Creatinine 0.94 (0.6-1.2) mg/dl Est Cr Clr Drug Dosing 96.1 ml/min eGFR 82.68 BUN/Creatinine Ratio 20.2 H (10-20) Glucose 127 H (70-99(Fasting)) mg/dl Calcium 9.3 (8.6-10.3) mg/dl Total Bilirubin 0.5 (0.2-1.0) mg/dl AST 136 H (13-39) U/L ALT 86 H (7-52) U/L Alkaline Phosphatase 53 (34-104) U/L Troponin I High Sens 3.3 (0-14) pg/ml Total Protein 7.6 (6.0-8.3) gm/dl Albumin 4.7 (3.4-5.0) gm/dl Globulin 2.9 (2.5-4.0) gm/dl Albumin/Globulin Ratio 1.6 (0.9-2) Lipase 19 (11-82) U/L TSH 3.031 (0.300-4.500) uIu/ml Urine Color Yellow Urine Appearance Clear (Clear) Urine pH 5.5 (4.5-7.5) Ur Specific [place] 1.032 H (1.000-1.030) Urine Protein Trace H (Negative) Urine Glucose (UA) Negative (Negative) Urine Ketones Trace H (Negative) Urine Blood Negative (Negative) Urine Nitrite Negative (Negative) Urine Bilirubin Negative (Negative) Urine Urobilinogen Negative (Negative) Ur Leukocyte Esterase Negative (Negative) Urine WBC (Auto) 0-5 (0-5) /hpf Urine RBC (Auto) 0-2 (0-2) /hpf U Hyaline Cast (Auto) 0-2 (0-2) /lpf U Epithel Cells (Auto) 3-5 H (0-2) /hpf Urine Bacteria (Auto) None Seen (None Seen) Hep Bs Antigen Negative (Negative) Hepatitis C Antibody Negative (Negative) Imaging Data Attestation: I personally reviewed and interpreted this imaging study as follows: My Impression: My interpretation of portable chest x-ray does not show any consolidations, pneumothorax or cardiomegaly. Radiologist report was also reviewed with concurrence. Radiologist's Impression: Chest X-Ray 06/20/24 18:07 INDICATION: Chest pain. TECHNIQUE: Frontal radiograph of the chest. COMPARISON: None. FINDINGS: The cardiomediastinal silhouette and pulmonary vasculature appear within normal limits. No infiltrate, pleural effusion or pneumothorax. No acute osseous abnormality evident. IMPRESSION: No acute cardiopulmonary process. Electronically signed by Emiliano Cruz 06-20-2024 6:59 PM ECG Data Attestation: I personally reviewed and interpreted this ECG as follows: Indication: + chest pain Rate (beats per minute): 76 Rhythm: + normal sinus ECG Intervals/blocks: + Normal QRS, + Normal QT and + Normal TX ECG [place]: + Normal ECG ST segments: + Normal ST segments Comparison ECG Date: no prior available Additional Comments: A subsequent ECG was performed, showing frequent PVCs in a bigeminal pattern. No ST elevations, ischemic changes or other conduction abnormalities noted. MDM Narrative Cardiac monitoring: An order was placed for continuous cardiac monitoring. The monitor shows a rate of 76 bpm with a normal sinus rhythm. radiation monitor history was reviewed throughout the evaluation, showing frequent conversions to a bigeminal PVC pattern. See ED Course section for further details of today's visit. The patient presents for evaluation of substernal chest discomfort. Her workup today does show that the patient is flipping [id number] between a normal sinus rhythm and bigeminal PVC pattern. Remainder of her workup does not show an elevated troponin level. Heart score is 0. Patient does have a mild leukocytosis with elevated LFTs. An ultrasound was performed, with preliminary paint laboratory technician notes showing a distended gallbladder with gallstones present, however no pericholecystic fluid, common bile duct dilatation or gallbladder wall thickening. Official radiologist report is pending. I did review ECGs with Dr. Young, ED attending physician, who recommended outpatient cardiology follow-up. While awaiting radiologist reads for the ultrasound, patient care was transferred to Karie Zayas PA-C at change of shift. Please see her dictation for further ultrasound findings and outpatient recommendations. Impression Atypical chest pain, Frequent unifocal PVCs, Elevated LFTs, Gallstones Discharge Plan Visit Data Chief Complaint: Chest Pain Stated Complaint: CHEST PAIN,REF BY PCP ED Provider: Deven Jones ED Midlevel Provider: Karie Zayas Discharge Problem: Atypical chest pain, Frequent unifocal PVCs, Elevated LFTs, Gallstones Patient Disposition: Still a Patient Condition: Fair Forms Stand Alone Forms: [employer] Prescriptions Prescriptions: No Action Alive Immune Elderberry 300 mcg-45 mg- 10 mcg-5 mg tablet,chewable 1 tab PO DAILY Digestive Advantage Prob Gummy 250 million cell tablet,chewable 250 mmu cells PO DAILY Referrals Referrals: Manjinder Shore III, CRNP [Primary Care Provider] - ED DC CONDITION Conditon at Discharge Condition at Discharge: Fair
--- NOTE | 2024-06-20 23:14 | Emergency Department Note ---
ED Visit Note This patient was transferred to [place] at the end of shift by Stevan Waldrop PA-C. Right upper quadrant ultrasound was still pending at the time of shift change. In short, the patient presents the emergency department for evaluation of upper abdominal pain. She has had intermittent symptoms for the past couple of weeks. She had an episode at 3:50 PM today that resolved, but then returned at 5 PM and did not resolve. She last ate and drank at 4:30 PM. The patient has not had any fevers. She denies any nausea or vomiting. She states the upper abdominal pain radiates into her chest, but no shortness of breath. On workup, she was found to have mildly elevated AST and ALT of 136 and 86 respectively, but a normal lipase and normal total bilirubin. White blood cell count was elevated at 14.13. Chest x-ray normal. Initial EKG showed normal sinus rhythm at 76 bpm with no acute ST or T wave changes. The patient did have intermittent episodes of bigeminy on the monitor and a repeat EKG showed sinus rhythm at 83 bpm with frequent PVCs, but otherwise unremarkable. The patient's high-sensitivity troponin was normal. Potassium and magnesium were normal. TSH was normal. Please refer to Stevan Waldrop PA-C's dictation for further details. Right upper quadrant ultrasound showed cholelithiasis. Common bile duct normal. There was nonspecific borderline prominence of the gallbladder wall. However, negative sonographic Blank sign suggests against acute cholecystitis. However, the patient did have IV Toradol prior to the right upper quadrant ultrasound. I then ordered a CT scan of the abdomen pelvis with IV contrast due to the patient's elevated white blood cell count, elevated LFTs, and cholelithiasis with questionable cholecystitis. CT scan of the abdomen and pelvis with IV contrast shows calculus cholecystitis with no evidence of ductal dilation. There is also a 7 mm calculus in the left renal lower calyx, mild free fluid in the pelvis, and a heterogeneous uterus. The patient was advised to follow-up with her PCP in regards to these nonemergent findings of the uterus and kidney. The patient has had a previous appendectomy and . I spoke with Dr. Hurst of general surgery. Due to the patient's frequent PVCs and episodes of bigeminy, he requested the patient be admitted to medicine and the patient be cleared medically prior to proceeding with surgical intervention of the cholecystitis. The patient was given Zosyn 4.5 g IV. The patient had been given 1 L normal saline solution bolus followed by normal saline solution 125 mL/h. The patient did not require any additional pain medication or nausea medication while in the ER. I spoke with the on-call hospitalist who agreed to admit the patient for medical clearance prior to surgical intervention. Please refer to their dictation for further details. The patient's care was transferred in stable condition. 1) Acute cholecystitis 2) Cholelithiasis 3) Frequent PVCs with bigeminy .
--- NOTE | 2024-06-20 23:28 | Ultrasound Report ---
Exam(s): US ABDOMEN LIMITED EXAM: US Abdomen Limited, Right Upper Quadrant CLINICAL HISTORY: Reason for exam: Elev LFTs, lower central C/P. TECHNIQUE: Real-time ultrasound of the right upper quadrant with image documentation. COMPARISON: CT abdomen/pelvis on 08/29/2019 FINDINGS: Liver: Liver measures 17.2 cm. Normal echogenicity and contour. No focal lesion. No intrahepatic bile duct dilation. Gallbladder: Cholelithiasis. Nonspecific borderline prominence of the gallbladder wall. No pericholecystic fluid. Negative sonographic Blank's sign. Common bile duct: Unremarkable as visualized. No stones. No dilation. Normal common bile duct measuring 5.7 mm. Pancreas: Visualized portions of the pancreas are grossly unremarkable. Right kidney: No hydronephrosis or stone. Probable right parapelvic cyst measuring up to 2.4 cm. Portal vein: Patent with normal direction of flow. Free fluid: No ascites. IMPRESSION: Cholelithiasis. Nonspecific borderline prominence of the gallbladder wall. However, negative sonographic Blank's sign suggests against acute cholecystitis. Electronically signed by: Jody Ryan M.D. 06/20/24 23:28 PM
[2024-06-20] MEDS: KETOROLAC TROMETHAMINE 15 MG/ML VIAL IV ONE (23:29)
[2024-06-20 23:57] LABS: Pregnancy Test, Urine Negative (Negative)
[2024-06-21] MEDS: OPTIRAY 320 100ml IV ONE (00:33)
[2024-06-21] MEDS: SODIUM CHLORIDE 0.9% 1,000 ML IV ONE (00:49)
--- NOTE | 2024-06-21 01:22 | CT Scan Report ---
EXAM: CT abd pelvis IV con only CLINICAL HISTORY: Upper abd pain, elev LFT, elev WBC TECHNIQUE: Contiguous axial images were obtained from the level of the diaphragm to the pubic symphysis with intravenous contrast. Coronal and sagittal reconstructions were likewise performed and indicated to increase the sensitivity for detecting clinically relevant pathology. If IV contrast material had not been administered, the likelihood of detecting abnormalities relevant to the patient's condition would have been substantially decreased. CT scan was performed according to ALARA (as low as reasonable achievable). COMPARISON: 13:26:01 [facility] OPERATOR FINDINGS: The visualized lung bases are clear. The liver is normal in size and attenuation. No focal liver lesions are seen. There is no intra or extrahepatic biliary ductal dilatation. Hepatic vasculature is patent. The gallbladder is distended and shows a few calculi, the largest measures of size 16 mm with edematous wall (wall thickness 4-5 mm). The spleen, pancreas, and adrenal glands are unremarkable. The kidneys are normal in size and attenuation. There is no hydronephrosis or perinephric fat stranding. A 7 mm sized calculus is noted in left renal lower calyx The ureters are normal in caliber and no ureteral calculi are seen. The bladder is normal in contour. Pelvic viscera are unremarkable. No focal or diffuse bowel wall thickening or evidence of bowel obstruction is identified. Abdominal and pelvic vasculature is patent. No adenopathy or fluid collections are seen. No aggressive appearing osseous lesions are identified. Mild free fluid noted in pelvis. Corpus luteum noted involving left ovary measuring about 18 mm Uterus is heterogeneous: advise USG IMPRESSION: 1. Calculus cholecystitis.-new finding. 2. A 7 mm sized calculus is noted in left renal lower calyx- interval increased size 3. Mild free fluid noted in pelvis-new finding. 4. Uterus is heterogeneous: advise USG Electronically signed by Pedrito Servin 06-21-2024 01:22 AM
--- NOTE | 2024-06-21 02:19 | History & Physical Report ---
Date of Service June 21, 2024 Assessment & Plan (1) Cholecystitis, acute: (2) Frequent unifocal PVCs: Plan 33yo female with 1 month of episodic upper abdominal pain. Found to have acute cholecystitis. Afebrile, HD stable. +Leukocytosis with mild elevation of WEZ=628 and ALT=86 #Cholecystitis -Admit to medical with telemetry -Keep NPO -NSS at 125mL/hr -Continue Zosyn -Tylenol PRN, Zofran PRN -General Surgery consultation appreciated -Repeat chemistry, CBC and LFTs in AM #Frequent PVCs - electroltyes WNL, TSH WNL. Suspect secondary to elevated sympathetic tone in acute cholecystitis -Telemetry monitoring History of Present Illness Chief Complaint: chest pain, upper abdominal pain Primary Care Provider: Manjinder Shore III, CRNP Deborah Alfonso is a 33yo female with no significant past medical history presenting with upper abdominal pain intermittent for the last month. Pain is severe. This week she has been having more episodes of discomfort. She had an episode around 16:00 today that lasted over 10 minutes. No associated fever, chills, nausea, vomiting, diarrhea. No additional complaints at this time. In the ER patient with frequent PVCs, bigeminy ER Course: Toradol Zosyn Allergies Allergy/AdvReac Type Severity Reaction Status Date / Time No Known Allergies Allergy Verified 06/20/24 19:23 Home Medications Medication Instructions Recorded Confirmed Type Bacillus coagulans 250 million 250 mmu cells PO DAILY 04/18/24 06/20/24 History cell chewable tablet (Digestive Advantage Probiotic Gummy) vit A 300 mcg-vit C 45 mg-vit D3 1 tab PO DAILY 04/18/24 06/20/24 History 10 mcg-vit E-zinc-hrb 352 chew tablet (Alive Immune Elderberry) Past Med/Surg History Problem List Cholecystitis, acute (Acute) Gallstones (Acute) Elevated LFTs (Acute) Frequent unifocal PVCs (Acute) Atypical chest pain (Acute) Medical History Failed external cephalic version Breech presentation Depression Left nephrolithiasis Acute appendicitis Normal labor Anxiety and depression no medications Hx of varicella Encounter for anatomic survey Surgical History S/P laparoscopic appendectomy (09/05/19) Laparoscopic Appendectomy Dr. Flores 09/05/19 S/P wisdom tooth extraction Family History Mother Hypertension Hypothyroidism Dyslipidemia Thyroid disease Grandmother (Paternal) Breast cancer HHT (hereditary hemorrhagic telangiectasia) Grandfather (Paternal) Myocardial infarction Grandfather (Maternal) Myocardial infarction Drinking problem Grandfather (Paternal) Diabetes Uncle Drinking problem Social History Smoking Status: Never smoker Second Hand Exposure: No; Do You Dip or Chew Tobacco: No; Hx Alcohol Use: Yes Alcohol type: wine Alcohol Intake Frequency: 2-4 x/Month Hx Substance Use: No Preferred Language: Mongolian Communication Ability: Effective Visual Impairment: No Limitations Hearing Ability: Normal Materials Buyer Required: No Beliefs That Will Affect Care: None marital status: marital status details: Frank Alfonso (32) [phone] Current Living Situation: Spouse and Family Current Living Situation Comment: and son 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: 2 Feels Safe at Home: Yes Childhood Exposure to Second-Hand Smoke: No Diet: regular caffeine: Yes Dental Care, Regularly: Yes Physical Activity Frequency: 3-4 Times per Week Seatbelt Use: always Sunscreen Use: Yes Assistive Devices: None Review of Systems Review of Systems: All systems reviewed & are unremarkable except as noted in HPI & below Physical Exam Physical Exam: General: patient resting comfortably, NAD, non-toxic in appearance, AA&O x 4 Skin: warm, dry, intact, no rashes or lesions HEENT: NC/AT, PERRL, EOMI, anicteric sclera, conjunctiva without injection, external ear normal to inspection and nontender, nares patent, moist mucus membranes, dentition intact, no oropharyngeal lesions, neck supple, trachea midline, no LAD, no thyromegaly, no JVD Heart: +S1/S2, regular, no m/r/g Lungs: equal air entry bilaterally, no rales/rhonchi/wheezes Abd: +BS, soft, NT/ND, no masses/organomegaly/ascites, no RUQ pain at the time of my exam Ext: warm, 2+ pulses in UE/LE bilaterally, no clubbing/cyanosis or edema Neuro: nonfocal, patient AA&O x 4, speech intact, no facial droop, moving all extremities on command with equal strength 5/5 Results & Data Results & Data Vital Signs (Past 12 Hours) Vital Signs Temp Pulse Pulse Resp BP BP Pulse Ox 06/21/24 01:42 60 06/21/24 01:00 65 19 121/77 06/21/24 00:38 85 18 125/72 98 06/20/24 23:00 82 19 125/63 97 06/20/24 23:00 79 20 125/63 96 06/20/24 22:45 83 06/20/24 22:00 69 19 126/58 L 96 06/20/24 21:01 83 19 108/71 98 06/20/24 20:03 72 19 118/72 06/20/24 20:00 81 18 118/72 98 06/20/24 19:00 75 19 135/71 98 06/20/24 18:45 74 06/20/24 18:07 79 20 99 06/20/24 18:04 36.6 C 75 20 145/84 H 100 O2 Del Method 06/21/24 01:42 06/21/24 01:00 06/21/24 00:38 06/20/24 23:00 06/20/24 23:00 06/20/24 22:45 06/20/24 22:00 06/20/24 21:01 06/20/24 20:03 06/20/24 20:00 06/20/24 19:00 06/20/24 18:45 06/20/24 18:07 Room Air 06/20/24 18:04 Room Air Laboratory Results Laboratory Results WBC 14.13 K/ul (4.8-10.8) H 06/20/24 18:14 RBC 5.11 M/uL (4.20-5.40) 06/20/24 18:14 Hgb 15.2 g/dl (12.0-16.0) 06/20/24 18:14 Hct 45.1 % (37.0-47.0) 06/20/24 18:14 MCV 88.3 fL (80.0-100.0) 06/20/24 18:14 MCH 29.7 pg (25.0-34.0) 06/20/24 18:14 MCHC 33.7 g/dL (32.0-36.0) 06/20/24 18:14 RDW Std Deviation 40.3 fL (36.4-46.3) 06/20/24 18:14 RDW Coeff of Gareth 12.5 % (11.5-14.5) 06/20/24 18:14 Plt Count 277 K/uL (130-400) 06/20/24 18:14 MPV 9.4 fL (9.4-12.4) 06/20/24 18:14 Immature Gran % (Auto) 0.4 % 06/20/24 18:14 Neut % (Auto) 84.3 % 06/20/24 18:14 Lymph % (Auto) 10.3 % 06/20/24 18:14 [place] % (Auto) 4.0 % 06/20/24 18:14 Eos % (Auto) 0.8 % 06/20/24 18:14 Baso % (Auto) 0.2 % 06/20/24 18:14 Neut # (Auto) 11.91 K/uL (1.40-6.50) H 06/20/24 18:14 Lymph # (Auto) 1.45 K/uL (1.20-3.40) 06/20/24 18:14 [place] # (Auto) 0.57 K/uL (0.11-0.59) 06/20/24 18:14 Eos # (Auto) 0.11 K/uL (0.00-0.50) 06/20/24 18:14 Baso # (Auto) 0.03 K/uL (0.00-0.20) 06/20/24 18:14 Immature Gran # (Auto) 0.06 K/uL (0.01-0.20) 06/20/24 18:14 Sodium 140 mmol/L (136-145) 06/20/24 18:14 Potassium 3.7 mmol/L (3.5-5.1) 06/20/24 18:14 Chloride 105 mmol/L (98-107) 06/20/24 18:14 Carbon Dioxide 29 mmol/L (21-32) 06/20/24 18:14 Anion Gap 6 (3-11) 06/20/24 18:14 BUN 19 mg/dl (6-23) 06/20/24 18:14 Creatinine 0.94 mg/dl (0.6-1.2) 06/20/24 18:14 Est Cr Clr Drug Dosing 96.1 ml/min 06/20/24 18:14 eGFR 82.68 06/20/24 18:14 BUN/Creatinine Ratio 20.2 (10-20) H 06/20/24 18:14 Glucose 127 mg/dl (70-99(Fasting)) H 06/20/24 18:14 Calcium 9.3 mg/dl (8.6-10.3) 06/20/24 18:14 Magnesium 2.0 mg/dl (1.7-2.4) 06/20/24 18:14 Total Bilirubin 0.5 mg/dl (0.2-1.0) 06/20/24 18:14 AST 136 U/L (13-39) H 06/20/24 18:14 ALT 86 U/L (7-52) H 06/20/24 18:14 Alkaline Phosphatase 53 U/L (34-104) 06/20/24 18:14 Troponin I High Sens 3.3 pg/ml (0-14) 06/20/24 18:14 Total Protein 7.6 gm/dl (6.0-8.3) 06/20/24 18:14 Albumin 4.7 gm/dl (3.4-5.0) 06/20/24 18:14 Globulin 2.9 gm/dl (2.5-4.0) 06/20/24 18:14 Albumin/Globulin Ratio 1.6 (0.9-2) 06/20/24 18:14 Lipase 19 U/L (11-82) 06/20/24 18:14 TSH 3.031 uIu/ml (0.300-4.500) 06/20/24 18:14 Urine Color Yellow 06/20/24 18:42 Urine Appearance Clear (Clear) 06/20/24 18:42 Urine pH 5.5 (4.5-7.5) 06/20/24 18:42 Ur Specific [place] 1.032 (1.000-1.030) H 06/20/24 18:42 Urine Protein Trace (Negative) H 06/20/24 18:42 Urine Glucose (UA) Negative (Negative) 06/20/24 18:42 Urine Ketones Trace (Negative) H 06/20/24 18:42 Urine Blood Negative (Negative) 06/20/24 18:42 Urine Nitrite Negative (Negative) 06/20/24 18:42 Urine Bilirubin Negative (Negative) 06/20/24 18:42 Urine Urobilinogen Negative (Negative) 06/20/24 18:42 Ur Leukocyte Esterase Negative (Negative) 06/20/24 18:42 Urine WBC (Auto) 0-5 /hpf (0-5) 06/20/24 18:42 Urine RBC (Auto) 0-2 /hpf (0-2) 06/20/24 18:42 U Hyaline Cast (Auto) 0-2 /lpf (0-2) 06/20/24 18:42 U Epithel Cells (Auto) 3-5 /hpf (0-2) H 06/20/24 18:42 Urine Bacteria (Auto) None Seen (None Seen) 06/20/24 18:42 Urine Test Negative (Negative) 06/20/24 18:42 Hep Bs Antigen Negative (Negative) 06/20/24 18:14 Hepatitis C Antibody Negative (Negative) 06/20/24 18:14 Impressions Chest X-Ray 06/20/24 18:07 INDICATION: Chest pain. TECHNIQUE: Frontal radiograph of the chest. COMPARISON: None. FINDINGS: The cardiomediastinal silhouette and pulmonary vasculature appear within normal limits. No infiltrate, pleural effusion or pneumothorax. No acute osseous abnormality evident. IMPRESSION: No acute cardiopulmonary process. Electronically signed by Emiliano Cruz 06-20-2024 6:59 PM Abdomen Ultrasound 06/20/24 19:49 Exam(s): US ABDOMEN LIMITED EXAM: US Abdomen Limited, Right Upper Quadrant CLINICAL HISTORY: Reason for exam: Elev LFTs, lower central C/P. TECHNIQUE: Real-time ultrasound of the right upper quadrant with image documentation. COMPARISON: CT abdomen/pelvis on 08/29/2019 FINDINGS: Liver: Liver measures 17.2 cm. Normal echogenicity and contour. No focal lesion. No intrahepatic bile duct dilation. Gallbladder: Cholelithiasis. Nonspecific borderline prominence of the gallbladder wall. No pericholecystic fluid. Negative sonographic Blank's sign. Common bile duct: Unremarkable as visualized. No stones. No dilation. Normal common bile duct measuring 5.7 mm. Pancreas: Visualized portions of the pancreas are grossly unremarkable. Right kidney: No hydronephrosis or stone. Probable right parapelvic cyst measuring up to 2.4 cm. Portal vein: Patent with normal direction of flow. Free fluid: No ascites. IMPRESSION: Cholelithiasis. Nonspecific borderline prominence of the gallbladder wall. However, negative sonographic Blank's sign suggests against acute cholecystitis. Electronically signed by: Jody Ryan M.D. 06/20/24 23:28 PM Abdomen/Pelvis CT 06/20/24 23:43 EXAM: CT abd pelvis IV con only CLINICAL HISTORY: Upper abd pain, elev LFT, elev WBC TECHNIQUE: Contiguous axial images were obtained from the level of the diaphragm to the pubic symphysis with intravenous contrast. Coronal and sagittal reconstructions were likewise performed and indicated to increase the sensitivity for detecting clinically relevant pathology. If IV contrast material had not been administered, the likelihood of detecting abnormalities relevant to the patient's condition would have been substantially decreased. CT scan was performed according to ALARA (as low as reasonable achievable). 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 The liver is normal in size and attenuation. No focal liver lesions are seen. There is no intra or extrahepatic biliary ductal dilatation. Hepatic vasculature is patent. The gallbladder is distended and shows a few calculi, the largest measures of size 16 mm with edematous wall (wall thickness 4-5 mm). The spleen, pancreas, and adrenal glands are unremarkable. The kidneys are normal in size and attenuation. There is no hydronephrosis or perinephric fat stranding. A 7 mm sized calculus is noted in left renal lower calyx The ureters are normal in caliber and no ureteral calculi are seen. The bladder is normal in contour. Pelvic viscera are unremarkable. No focal or diffuse bowel wall thickening or evidence of bowel obstruction is identified. Abdominal and pelvic vasculature is patent. No adenopathy or fluid collections are seen. No aggressive appearing osseous lesions are identified. Mild free fluid noted in pelvis. Corpus luteum noted involving left ovary measuring about 18 mm Uterus is heterogeneous: advise USG IMPRESSION: 1. Calculus cholecystitis.-new finding. 2. A 7 mm sized calculus is noted in left renal lower calyx- interval increased size 3. Mild free fluid noted in pelvis-new finding. 4. Uterus is heterogeneous: advise USG Electronically signed by Pedrito Servin 06-21-2024 01:22 AM Code Status & VTE Plan VTE Prophylaxis Plan VTE Prophylaxis will be ordered: Yes PG Care Time/CCT Total # of Minutes Spent Total Time Spent with Patient: Total time spent is greater than 50% in coordination of care (as documented) at patient's floor/unit and/or counseling patient: Coding Level of Care Code 32681 INT INP/OBS CARE 3/75MIN Diagnoses Cholecystitis, acute K81.0 Frequent unifocal PVCs I49.3
[2024-06-21] MEDS: PIPERACILLIN/TAZOBACTAM 4.5 GM/100 ML BAG IV ONE (02:37)
[2024-06-21] MEDS: SODIUM CHLORIDE 0.9% 1,000 ML IV SCH (03:43)
[2024-06-21] MEDS ORDERED: ACETAMINOPHEN 1,000 MG/100 ML VIAL IV PRN (09:22)
[2024-06-21] MEDS ORDERED: ONDANSETRON INJ 2 MG/ML 2 ML VIAL IV PRN (09:22)
[2024-06-21] MEDS: PIPERACILLIN/TAZOBACTAM 4.5 GM/100 ML BAG IV SCH (10:14)
--- NOTE | 2024-06-21 10:19 | Surgery Consultation ---
Date of Consultation June 21, 2024 Assessment & Plan (1) Cholecystitis, acute: IV abx liquids NPO p MN lap maren in AM cardiac clearance per medicine/anesthesia History of Present Illness Attending Physician: Sonal Lamb DO History of Present Illness This is a 33YO admitted with RUQ abdominal pain, previous episodes resolved. She denies fever, chills, nausea, vomiting, or bowel habit changes. She has had some cardiac changes on the monitor. US shows stones and signs of acute cholecystitis, nL CBD. Allergies Allergy/AdvReac Type Severity Reaction Status Date / Time No Known Allergies Allergy Verified 06/20/24 19:23 Home Medications Medication Instructions Recorded Confirmed Type Bacillus coagulans 250 million 250 mmu cells PO DAILY 04/18/24 06/20/24 History cell chewable tablet (Digestive Advantage Probiotic Gummy) vit A 300 mcg-vit C 45 mg-vit D3 1 tab PO DAILY 04/18/24 06/20/24 History 10 mcg-vit E-zinc-hrb 352 chew tablet (Alive Immune Elderberry) Patient History Medical History Failed external cephalic version Breech presentation Depression Left nephrolithiasis Acute appendicitis Normal labor Anxiety and depression no medications Hx of varicella Encounter for anatomic survey Surgical History S/P laparoscopic appendectomy (09/05/19) Laparoscopic Appendectomy Dr. Flores 09/05/19 S/P wisdom tooth extraction Family History Mother Hypertension Hypothyroidism Dyslipidemia Thyroid disease Grandmother (Paternal) Breast cancer HHT (hereditary hemorrhagic telangiectasia) Grandfather (Paternal) Myocardial infarction Grandfather (Maternal) Myocardial infarction Drinking problem Grandfather (Paternal) Diabetes Uncle Drinking problem Social History Smoking Status: Never smoker Second Hand Exposure: No; Do You Dip or Chew Tobacco: No; Hx Alcohol Use: Yes Alcohol type: wine Alcohol Intake Frequency: 2-4 x/Month Hx Substance Use: No Preferred Language: Nicaraguan Communication Ability: Effective Visual Impairment: No Limitations Hearing Ability: Normal Contract Specialist Required: No Beliefs That Will Affect Care: None marital status: marital status details: Frank Alfonso (32) [phone] Current Living Situation: Spouse Current Living Situation Comment: and son 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: 2 Feels Safe at Home: Yes Childhood Exposure to Second-Hand Smoke: No Diet: regular caffeine: Yes Dental Care, Regularly: Yes Physical Activity Frequency: 3-4 Times per Week Seatbelt Use: always Sunscreen Use: Yes Assistive Devices: None Review of Systems Constitutional: no fever, no chills and no anorexia Eyes: no problem reported Ear, Nose, Mouth, Throat: no problem reported Respiratory: no cough and no dyspnea Cardiovascular: no chest pain Gastrointestinal: + abdominal pain; no nausea, no vomiting and no change in bowel habits Genitourinary: no dysuria Musculoskeletal: no back pain Integumentary: no problem reported Neurologic: no localized weakness Psychiatric: no behavioral changes Endocrine: no fatigue Physical Exam Constitutional: WD/WN, vitals as above Eyes: no scleral abnormality ENMT: external ear and nose normal, oropharynx normal Neck: trachea midline Respiratory: normal respiratory effort, lungs clear to auscultation Cardiovascular: RRR, no murmur, no edema Gastrointestinal (Abdomen): Inspection/Auscultation: abdomen normal to inspection and normal bowel sounds; abdomen not distended Pe rcussion/Palpation: + abdomen tender (mild) and abdomen soft; no guarding and abdomen not rigid Musculoskeletal: Head/Neck/Chest: normocephalic and head atraumatic Skin: no rashes, warm and dry Results & Data Vital Signs (Past 12 Hours) Vital Signs Temp Pulse Pulse Pulse Resp BP BP 06/21/24 08:51 36.5 C 64 16 109/64 06/21/24 08:31 73 20 112/70 06/21/24 08:15 65 18 112/70 06/21/24 07:06 67 20 118/61 06/21/24 06:00 65 17 98/64 L 06/21/24 05:56 68 06/21/24 05:15 56 L 17 111/84 06/21/24 04:00 51 L 17 104/74 06/21/24 03:00 69 18 123/65 06/21/24 02:42 74 17 127/75 06/21/24 02:00 60 19 123/66 06/21/24 01:42 60 06/21/24 01:00 65 19 121/77 06/21/24 00:38 85 18 125/72 06/20/24 23:00 82 19 125/63 06/20/24 23:00 79 20 125/63 06/20/24 22:45 83 Pulse Ox O2 Del Method 06/21/24 08:51 100 Room Air 06/21/24 08:31 98 Room Air 06/21/24 08:15 98 Room Air 06/21/24 07:06 99 Room Air 06/21/24 06:00 93 06/21/24 05:56 06/21/24 05:15 98 06/21/24 04:00 99 06/21/24 03:00 99 06/21/24 02:42 99 Room Air 06/21/24 02:00 98 06/21/24 01:42 06/21/24 01:00 06/21/24 00:38 98 06/20/24 23:00 97 06/20/24 23:00 96 06/20/24 22:45 Diagnostic Findings EXAM: US Abdomen Limited, Right Upper Quadrant CLINICAL HISTORY: Reason for exam: Elev LFTs, lower central C/P. TECHNIQUE: Real-time ultrasound of the right upper quadrant with image documentation. COMPARISON: CT abdomen/pelvis on 08/29/2019 FINDINGS: Liver: Liver measures 17.2 cm. Normal echogenicity and contour. No focal lesion. No intrahepatic bile duct dilation. Gallbladder: Cholelithiasis. Nonspecific borderline prominence of the gallbladder wall. No pericholecystic fluid. Negative sonographic Blank's sign. Common bile duct: Unremarkable as visualized. No stones. No dilation. Normal common bile duct measuring 5.7 mm. Pancreas: Visualized portions of the pancreas are grossly unremarkable. Right kidney: No hydronephrosis or stone. Probable right parapelvic cyst measuring up to 2.4 cm. Portal vein: Patent with normal direction of flow. Free fluid: No ascites. IMPRESSION: Cholelithiasis. Nonspecific borderline prominence of the gallbladder wall. However, negative sonographic Blank's sign suggests against acute cholecystitis.
--- NOTE | 2024-06-21 20:28 | Hospitalist Progress Note ---
Date of Service June 21, 2024 Assessment & Plan (1) Cholecystitis, acute: (2) Frequent unifocal PVCs: Plan 33 years old female with PMH of FULL CODE @ home, overweight with BMI 27.3 (height 172.7 cm; weight 81.3 kg), who complained of 1 month of episodic upper abdominal pain. Patient was subsequently admitted to the inpatient hospitalist service @ [facility] on 06/20/2024 with the following diagnosis: 1. Acute cholecystitis. -Clear liquid diet until 12:00am, 06/22/2024, at which time, patient will be NPO for laparoscopic cholecystectomy in the 06/21/2024 am with General Surgeon Dr. Darnell Hurst -In the interim, continue 0.9% NS at 125mL/hr, zosyn, tylenol prn, zofran prn -Repeat chemistry, CBC and LFTs in AM #Frequent PVCs - electrolytes WNL, TSH WNL. Suspect secondary to elevated sym pathetic tone in acute cholecystitis -Telemetry monitoring Admission and Anticipated Discharge Date Admission Date: June 21, 2024 Subjective "I'm ok now. No complaints. The Surgeon Dr. Darnell Hurst said he is going to take out my gallbladder tomorrow morning." Review of Systems Constitutional: Negative for antecedent/coincident fevers, chills, diaphoresis, shortness of breath, dyspnea on exertion, cough, wheeze, sore throat, hemoptysis, chest pains, palpitations, pleurisy, nausea, vomiting, diarrhea, abdominal pain, pelvic pain, hematemesis, hematochezia, melena, hematuria, frequency, urgency, headaches, dizziness, lightheadedness, visual changes, hearing changes, weakness, falls, syncope, trauma, travel history, sick contacts, or food/drug ingestions novel or new. All other review of systems are reported as negative by the patient on 06/21/2024. Physical Exam Constitutional: General: Comfortable, coherent, cooperative. Wide awake and alert. Not confused, lethargic, or obtunded. Patient speaks in complete, fluent, and articulate sentences without pause, cough, or wheeze, with O2 sat 98% on room air (06/21/2024, 4:13 pm). HEENT: Normocephalic, atraumatic. Extra-ocular muscles intact. Pupils equally round and reactive to light. No nystagmus, gaze paresis, anisocoria, miosis, mydriasis, hyphema, scleral injection, conjunctivitis, or pterygium. No otorrhea or rhinorrhea. No pharyngeal erythema, edema, or discharge. Neck: Supple, no stridor, bruit, goiter, or hepato-jugular reflux. Jugular venous pressure is estimated to be 3 cm above the sternal angle of Dhaval, which in turn, is 5 cm above the level of the right atrium; with jugular venous pressure estimated to be 8 cm, then, there is no jugular venous distention on 06/21/2024. Lymphatics: No cervical (anterior/posterior), supraclavicular, in fraclavicular, axillary, epitrochlear, or inguinal adenopathy. Chest: Symmetric rise and fall with respirations. Non-tender to palpation. Lungs: Clear to auscultation and percussion. Heart: Regular rate and rhythm. S1 and S2 noted. No S3 or S4 summation gallop. No tripartite friction rub. Grade II/ early systolic murmur @ LLSB without radiation to the carotids, axilla, or back, and which remains invariant in regards to the respiratory cycle. Abdomen: Soft, non-tender, non-distended. No rebound, guarding, Blank's sign, or organomegaly. Bowel sounds auscultated in all 4 quadrants. Extremities: No clubbing, cyanosis, or edema. 2+ pedal pulses bilaterally. Skin: No decubitus ulcer, exanthem, or enanthem. Genito-urinary: No urethral discharge. No rayo catheter. Dry underwear. Neurology: Alert and oriented in regards to person, place, time, and situation. DTR+ and symmetric. 5/5 motor strength in all 4 extremities, both proximally and distally. No pronator drift. No facial droop. No dysarthria. Psychiatry: No homicidal ideation. No suicidal ideation. No flat affect; smiles appropriately. Results & Data Results & Data Vital Signs (Past 12 Hours) Vital Signs Temp Pulse Pulse Pulse Resp BP BP 06/21/24 16:13 36.7 C 70 16 108/70 06/21/24 14:49 90 06/21/24 14:48 66 05/08/25 11:46 36.7 C 54 L 16 111/70 06/21/24 08:51 36.5 C 64 16 109/64 06/21/24 08:31 73 20 112/70 Pulse Ox O2 Del Method 06/21/24 16:13 98 Room Air 06/21/24 14:49 06/21/24 14:48 06/21/24 11:46 98 Room Air 06/21/24 08:51 100 Room Air 06/21/24 08:31 98 Room Air Laboratory Results Chest X-Ray 06/20/24 18:07 INDICATION: Chest pain. TECHNIQUE: Frontal radiograph of the chest. COMPARISON: None. FINDINGS: The cardiomediastinal silhouette and pulmonary vasculature appear within normal limits. No infiltrate, pleural effusion or pneumothorax. No acute osseous abnormality evident. IMPRESSION: No acute cardiopulmonary process. Electronically signed by Emiliano Cruz 06-20-2024 6:59 PM Abdomen Ultrasound 06/20/24 19:49 Exam(s): US ABDOMEN LIMITED EXAM: US Abdomen Limited, Right Upper Quadrant CLINICAL HISTORY: Reason for exam: Elev LFTs, lower central C/P. TECHNIQUE: Real-time ultrasound of the right upper quadrant with image documentation. COMPARISON: CT abdomen/pelvis on 08/29/2019 FINDINGS: Liver: Liver measures 17.2 cm. Normal echogenicity and contour. No focal lesion. No intrahepatic bile duct dilation. Gallbladder: Cholelithiasis. Nonspecific borderline prominence of the gallbladder wall. No pericholecystic fluid. Negative sonographic Blank's sign. Common bile duct: Unremarkable as visualized. No stones. No dilation. Normal common bile duct measuring 5.7 mm. Pancreas: Visualized portions of the pancreas are grossly unremarkable. Right kidney: No hydronephrosis or stone. Probable right parapelvic cyst measuring up to 2.4 cm. Portal vein: Patent with normal direction of flow. Free fluid: No ascites. IMPRESSION: Cholelithiasis. Nonspecific borderline prominence of the gallbladder wall. However, negative sonographic Blank's sign suggests against acute cholecystitis. Electronically signed by: Jody Ryan M.D. 06/20/24 23:28 PM Abdomen/Pelvis CT 06/20/24 23:43 EXAM: CT abd pelvis IV con only CLINICAL HISTORY: Upper abd pain, elev LFT, elev WBC TECHNIQUE: Contiguous axial images were obtained from the level of the diaphragm to the pubic symphysis with intravenous contrast. Coronal and sagittal reconstructions were likewise performed and indicated to increase the sensitivity for detecting clinically relevant pathology. If IV contrast material had not been administered, the likelihood of detecting abnormalities relevant to the patient's condition would have been substantially decreased. CT scan was performed according to ALARA (as low as reasonable achievable). COMPARISON: 13:26:01 MEDICAL INFORMATION SPECIALIST FINDINGS: The visualized lung bases are clear. The liver is normal in size and attenuation. No focal liver lesions are seen. There is no intra or extrahepatic biliary ductal dilatation. Hepatic vasculature is patent. The gallbladder is distended and shows a few calculi, the largest measures of size 16 mm with edematous wall (wall thickness 4-5 mm). The spleen, pancreas, and adrenal glands are unremarkable. The kidneys are normal in size and attenuation. There is no hydronephrosis or perinephric fat stranding. A 7 mm sized calculus is noted in left renal lower calyx The ureters are normal in caliber and no ureteral calculi are seen. The bladder is normal in contour. Pelvic viscera are unremarkable. No focal or diffuse bowel wall thickening or evidence of bowel obstruction is identified. Abdominal and pelvic vasculature is patent. No adenopathy or fluid collections are seen. No aggressive appearing osseous lesions are identified. Mild free fluid noted in pelvis. Corpus luteum noted involving left ovary measuring about 18 mm Uterus is heterogeneous: advise USG IMPRESSION: 1. Calculus cholecystitis.-new finding. 2. A 7 mm sized calculus is noted in left renal lower calyx- interval increased size 3. Mild free fluid noted in pelvis-new finding. 4. Uterus is heterogeneous: advise USG Electronically signed by Pedrito Servin 06-21-2024 01:22 AM PG Care Time/CCT Total # of Minutes Spent Total Time Spent with Patient: Total time spent is greater than 50% in coordination of care (as documented) at patient's floor/unit and/or counseling patient: Coding Level of Care Code 08536 SUB INP/OBS CARE 2/35MIN Diagnoses Cholecystitis, acute K81.0 Frequent unifocal PVCs I49.3
[2024-06-22 08:29] LABS: Hematocrit (blood only) 43.7 % (37.0-47.0); Hemoglobin 14.7 g/dl (12.0-16.0); Mean Corpuscular Hemoglobin 30.1 pg (25.0-34.0); Mean Corpuscular Hgb Conc 33.6 g/dL (32.0-36.0); Mean Corpuscular Volume 89.5 fL (80.0-100.0); Mean Platelet Volume 9.6 fL (9.4-12.4); Platelet Count 223 K/uL (130-400); RDW Coefficient of Variation 12.7 % (11.5-14.5); RDW Standard Deviation 41.9 fL (36.4-46.3); Red Blood Count 4.88 M/uL (4.20-5.40); White Blood Count 5.62 K/ul (4.8-10.8)
[2024-06-22 08:48] LABS: Albumin Level 3.9 gm/dl (3.4-5.0); BUN Creatinine Ratio 8.1 (10-20); Bilirubin Direct 0.2 mg/dl (0-0.2); Bilirubin,Total 1.3 mg/dl (0.2-1.0); Calcium 8.2 mg/dl (8.6-10.3); Creatinine Clr Calc Pharmacy 105.1 ml/min; Potassium 3.9 mmol/L (3.5-5.1); Total Protein 6.4 gm/dl (6.0-8.3)
--- NOTE | 2024-06-22 10:32 | History & Physical Bridge Note ---
Date of Service June 22, 2024 History & Physical Bridge Note I have examined the patient, reviewed the History & Physical and in the interval since the performance of the History & Physical I have noted the following changes of clinical significance: no changes noted
--- NOTE | 2024-06-22 11:10 | Anesthesiology Consultation ---
Date of Service June 22, 2024 Assessment & Plan Chart Review Chart Review: Acceptable Risk for Surgery Consults Requested none History Surgery Operation Date: 06/22/24 10:30 Proposed Procedures p Laparoscopic Cholecystectomy, No Cholangiogram - Darnell Hurst MD Height/Weight Height: 5 ft 8 in Weight: 81.3 kg Allergies Allergy/AdvReac Type Severity Reaction Status Date / Time No Known Allergies Allergy Verified 06/20/24 19:23 Medications Home Medications Medication Instructions Recorded Confirmed Last Taken Bacillus coagulans 250 million 250 mmu cells PO DAILY 04/18/24 06/20/24 06/20/24 cell chewable tablet (Digestive Advantage Probiotic Gummy) vit A 300 mcg-vit C 45 mg-vit D3 1 tab PO DAILY 04/18/24 06/20/24 06/20/24 10 mcg-vit E-zinc-hrb 352 chew tablet (Alive Immune Elderberry) Active Medications Generic Name Dose Route Start Last Admin Trade Name Freq PRN Reason Stop Dose Admin Sodium Chloride 1,000 mls @ 125 mls/hr 06/21/24 02:00 06/22/24 10:01 Nss IV 06/24/24 01:59 125 mls/hr .Q8H LÓPEZ Infusion Piperacillin Sod/Tazobactam Sod 4.5 gm in 100 mls @ 25 mls/hr 06/21/24 09:30 06/22/24 08:56 Zosyn IV 07/01/24 09:29 25 mls/hr Q8H LÓPEZ Administration Protocol NPO Date Last Intake of Fluids: 06/21/24 Time Last Intake of Fluids: 22:00 Date Last Intake of Solids: 06/20/24 Time Last Intake of Solids: 16:30 Past Medical History Medical History Failed external cephalic version Breech presentation Depression Left nephrolithiasis Acute appendicitis Normal labor Anxiety and depression no medications Hx of varicella Encounter for anatomic survey Past Family History Family History Mother Hypertension Hypothyroidism Dyslipidemia Thyroid disease Grandmother (Paternal) Breast cancer HHT (hereditary hemorrhagic telangiectasia) Grandfather (Paternal) Myocardial infarction Grandfather (Maternal) Myocardial infarction Drinking problem Grandfather (Paternal) Diabetes Uncle Drinking problem Past Surgical History Surgical History S/P laparoscopic appendectomy (09/05/19) Laparoscopic Appendectomy Dr. Flores 09/05/19 S/P wisdom tooth extraction Social History Smoking Status: Never smoker Do You Dip or Chew Tobacco: No Hx Alcohol Use: Yes Alcohol type: wine alcohol intake frequency: holidays/special occasions only Hx Substance Use: No substance use type: does not use Physical Exam Vital Signs Last Vital Signs Temp 36.8 C 06/22/24 08:11 Pulse 70 06/22/24 08:11 Resp 18 06/22/24 08:11 BP 115/77 06/22/24 08:11 Pulse Ox 98 06/22/24 08:11 O2 Del Method Room Air 06/22/24 08:11 Testing Laboratory Results 06/22/24 08:05 06/22/24 08:05 Urine Color Yellow 06/20/24 18:42 Urine Appearance Clear (Clear) 06/20/24 18:42 Urine pH 5.5 (4.5-7.5) 06/20/24 18:42 Ur Specific [place] 1.032 (1.000-1.030) H 06/20/24 18:42 Urine Protein Trace (Negative) H 06/20/24 18:42 Urine Glucose (UA) Negative (Negative) 06/20/24 18:42 Urine Ketones Trace (Negative) H 06/20/24 18:42 Urine Nitrite Negative (Negative) 06/20/24 18:42 Ur Leukocyte Esterase Negative (Negative) 06/20/24 18:42 Urine WBC (Auto) 0-5 /hpf (0-5) 06/20/24 18:42 Urine RBC (Auto) 0-2 /hpf (0-2) 06/20/24 18:42 U Hyaline Cast (Auto) 0-2 /lpf (0-2) 06/20/24 18:42 U Epithel Cells (Auto) 3-5 /hpf (0-2) H 06/20/24 18:42 Urine Bacteria (Auto) None Seen (None Seen) 06/20/24 18:42 Urine Test Negative (Negative) 06/20/24 18:42 06/20/24 18:42 Urine Test Negative
[2024-06-22] MEDS ORDERED: fentaNYL citrate PF 100 MCG/2 ML VIAL ONE ×2 (11:21→12:00)
[2024-06-22] MEDS ORDERED: MIDAZOLAM HCL 1 MG/ML 2ML VIAL ONE (11:21)
[2024-06-22] MEDS ORDERED: PROPOFOL IV EMULSION 10 MG/ML 20 ML VIAL IV ONE (12:00)
[2024-06-22] MEDS ORDERED: ONDANSETRON INJ 2 MG/ML 2 ML VIAL ONE (12:01)
[2024-06-22] MEDS ORDERED: ROCURONIUM BROMIDE 10 MG/ML 5 ML VIAL IV ONE (12:01)
[2024-06-22] MEDS ORDERED: LIDOCAINE 2% 2 ML VIAL/AMP(20MG/ML) INFIL ONE (12:01)
[2024-06-22] MEDS ORDERED: DEXAMETHASONE SOD INJ 4 MG/ML VIAL ONE (12:01)
[2024-06-22] MEDS ORDERED: GLYCOPYRROLATE 0.2 MG/ML VIAL ONE ×2 (12:10→12:16)
[2024-06-22] MEDS: BUPIVACAINE/EPINEPHRINE 0.5% MPF 1:200,000 30 ML VIAL ONE (12:10)
[2024-06-22] MEDS ORDERED: NEOSTIGMINE METHYLSULFATE 1 MG/ML 10ML VIAL ONE (12:10)
[2024-06-22] MEDS ORDERED: KETOROLAC 30 MG/ML VIAL ONE (12:12)
--- NOTE | 2024-06-22 12:24 | Operative Report ---
Post Operative Report Pre & Post Diagnosis Operation Date: 06/22/24 10:30 Acute cholecystitis I identified the patient and participated in the time-out.: Yes Procedure Operation Date: 06/22/24 10:30 Laparoscopic cholecystectomy Surgeon Darnell Hurst MD Manager Regulatory Lois Caceres PA-C Estimated Blood Loss 10 Findings Consistent with Post-Op Diagnosis Specimens Gallbladder to pathology Drains None Anesthesia Type General Complications none Disposition Accompanied Patient To Recovery: No Disposition: Recovery Room Indications Is a 33-year-old female admitted through the ED with acute abdominal pain. She had known gallstones and had previous attacks of biliary colic. She came in and had some PVCs and bigeminy and therefore was admitted to medicine and cleared for surgery. Will plan on doing a laparoscopic cholecystectomy. She understands all the risks and wished to proceed. Description of Procedure The patient was taken the OR, placed in the supine position and underwent excellent general endotracheal anesthesia. Their abdomen is prepped and draped normal sterile fashion. A transverse supraumbilical incision was made and dissection was taken down to identify the anterior fascia. Two Vicryl sutures were placed on either side of the midline and his midline was then incised. The peritoneal cavity was entered bluntly with Zeynep clamp. A 12mm Dela Cruz trocar was then inserted and secured. Good pneumoperitoneum was achieved to 15 mmHg pressure. The patient was placed in head up and rolled to the left position. A 11mm subxiphoid and two 5mm lateral ports were placed in the normal fashion. The gallbladder was identified and was acutely inflamed. The fundus of the gallbladder was retracted superiorly. The neck of the gallbladder was grasped and then retracted laterally. This splayed open the Hepatocystic triangle. Attention was then turned to taking down the peritoneal attachments and identify the cystic duct and cystic artery. Once these were skeletonized and a medial and lateral window was created between the gallbladder fossa and the duct, thereby ensuring the critical view. Then three clips were then placed distally on cystic duct one proximally on the cystic duct, it was then transected. Two clips were then placed approximately on the cystic artery one distally, the cystic artery was transected. Clips were also placed on a vein which was identified going to the gallbladder. An electrocautery hook was then used to move the gallbladder off the gallbladder fossa. There was no bile spillage and no stones were spilled. The gallbladder was then placed into an Endobag and brought out through the supraumbilical incision. The pneumoperitoneum was re- established and abdomen was irrigated out until the suction fluid was clear. There were some areas on the gallbladder fossa which were raw which were cauterized. The ports were then removed and the abdomen decompressed. The fascia of the supraumbilical incision was closed with Vicryls. 0.5% Marcaine with epinephrine local was to create a local field block. Interrupted Vicryl was used to close the skin. Dermabond was used to reinforce the incisions. Sterile dressings were applied. Patient tolerated the procedure without complication and sent to the postop recovery period of observation. They will then be sent to the floor for the rest of their care. Lois Caceres PA-C was present and participated in the entire procedure. She was integral in skin closure, retraction, and camera manipulation. There was no qualified resident available to assist. I attest to the content of the Intraoperative Record and any orders documented therein. Any exceptions are noted below.
[2024-06-22] MEDS ORDERED: ATROPINE SULFATE 0.1 MG/ML 10ML SYR IV PRN (12:36)
[2024-06-22] MEDS ORDERED: ONDANSETRON INJ 2 MG/ML 2 ML VIAL IV PRN (12:36)
[2024-06-22] MEDS ORDERED: PROMETHAZINE HCL 6.25 MG in SODIUM CHLORIDE 0.9% 50 ML IV PRN (12:36)
[2024-06-22] MEDS ORDERED: ePHEDrine sulfate 50 MG/ML AMP IV PRN (12:36)
[2024-06-22] MEDS ORDERED: HYDROmorphone INJ 2 MG/ML SYR/VIAL IV PRN (12:36)
[2024-06-22] MEDS: fentaNYL citrate PF 100 MCG/2 ML VIAL IV PRN (12:38)
[2024-06-22] MEDS ORDERED: oxyCODONE/ACETAMINOPHEN 5mg/325mg TAB PO PRN ×2 (13:26)
[2024-06-22] MEDS ORDERED: MoRPHine SULFATE 2 MG/ML CARP IV PRN (13:26)
--- NOTE | 2024-06-22 13:35 | Anesthesiology Progress Note ---
Date of Service June 22, 2024 Anesthesia Post Procedure Vital Signs Vital Signs: Temp Pulse Pulse Pulse Resp BP BP 06/22/24 13:21 36.6 C 59 L 20 131/74 06/22/24 13:05 36.8 C 62 13 135/99 06/22/24 12:55 71 17 136/79 06/22/24 12:45 60 19 131/66 06/22/24 12:35 61 16 137/74 06/22/24 12:29 36.9 C 62 18 124/80 06/22/24 08:11 36.8 C 70 18 115/77 06/22/24 05:39 62 06/22/24 04:18 36.7 C 74 16 113/76 06/21/24 22:11 65 06/21/24 22:00 36.6 C 65 18 108/73 06/21/24 19:36 36.6 C 66 18 118/69 06/21/24 16:13 36.7 C 70 16 108/70 06/21/24 14:49 90 06/21/24 14:48 66 Pulse Ox O2 Del Method O2 Flow Rate 06/22/24 13:21 100 Room Air 06/22/24 13:05 98 Room Air 06/22/24 12:55 99 Room Air 06/22/24 12:45 98 Oxymask 4 06/22/24 12:35 100 Oxymask 7 06/22/24 12:29 100 Oxymask 7 06/22/24 08:11 98 Room Air 06/22/24 05:39 06/22/24 04:18 98 Room Air 06/21/24 22:11 06/21/24 22:00 98 Room Air 06/21/24 19:36 97 Room Air 06/21/24 16:13 98 Room Air 06/21/24 14:49 06/21/24 14:48 Pain Intensity Abdomen: Pain Intensity: 6 Transfer of Care Handoff Completed per policy Notes Mental Status: alert / awake / arousable and participated in evaluation Patient Amnestic to Procedure: Yes Nausea / Vomiting: adequately controlled Pain: adequately controlled Airway Patency, RR, SpO2: stable & adequate BP & HR: stable & adequate Hydration State: stable & adequate Anesthetic Complications: no major complications apparent
[2024-06-22] MEDS: MoRPHine SULFATE 4 MG/ML 1 ML CARP\\VIAL IV PRN (13:54)
[2024-06-22] MEDS: fentaNYL citrate PF 100 MCG/2 ML VIAL ONE (13:57)
[2024-06-22 14:56] VITALS: O2SAT 96
--- NOTE | 2024-06-22 15:16 | Discharge Summary ---
Discharge Summary Date of Service June 22, 2024 Principal Dx & Hospital Course #1 = Principal Diagnosis (1) Cholecystitis, acute: (2) Frequent unifocal PVCs: Plan 33 years old female with PMH of FULL CODE @ home, overweight with BMI 27.3 (height 172.7 cm; weight 81.3 kg), who complained of 1 month of episodic upper abdominal pain. Patient was subsequently admitted to the inpatient hospitalist service @ [facility] on 06/20/2024 with the following diagnosis: 1. Acute cholecystitis. -Patient received a clear liquid diet until 06/22/2024, 12:00am, after which, patient was NPO for laparoscopic cholecystectomy on 06/21/2024, 12:20pm with General Surgeon Dr. Darnell Hurst -In the interim, patient received 0.9% NS at 125mL/hr, zosyn, tylenol prn, zofran prn while in [facility]; patient will not continue any of these medications on hospital discharge back to home on 06/22/2024. -Patient subsequently arrived back to her room from the OR and tolerated a clear liquid diet very well and without complaints -Patient was subsequently discharged back to her home on 06/22/2024, 3:15pm and will follow up with her PCP ANJALI Tucker III, and her General Surgeon Dr. Darnell Hurst, both within 5 days of hospital discharge. Until then, patient may self-medicate with tylenol 650mg PO q6 prn mild pain, headache, temp > 100.4 degrees Fahrenheit, or ibuprofen 600mg PO q6 prn mild pain at home. Admission HPI Per Admitting Provider 33 years old female with PMH of FULL CODE @ home, overweight with BMI 27.3 (height 172.7 cm; weight 81.3 kg), who complained of 1 month of episodic upper abdominal pain. This week she has been having more episodes of discomfort. She had an episode around 16:00 today that lasted over 10 minutes. No associated fever, chills, nausea, vomiting, diarrhea. No additional complaints at this time. In the ER patient with frequent PVCs, bigeminy ER Course: Toradol Zosyn Discharge Exam Constitutional General: Comfortable, coherent, cooperative. Wide awake and alert. Not confused, lethargic, or obtunded. Patient speaks in complete, fluent, and articulate sentences without pause, cough, or wheeze, with O2 sat 96% on room air (06/22/2024, 2:55 pm). HEENT: Normocephalic, atraumatic. Extra-ocular muscles intact. Pupils equally round and reactive to light. No nystagmus, gaze paresis, anisocoria, miosis, mydriasis, hyphema, scleral injection, conjunctivitis, or pterygium. No otorrhea or rhinorrhea. No pharyngeal erythema, edema, or discharge. Neck: Supple, no stridor, bruit, goiter, or hepato-jugular reflux. Jugular venous pressure is estimated to be 3 cm above the sternal angle of Dhaval, which in turn, is 5 cm above the level of the right atrium; with jugular venous pressure estimated to be 8 cm, then, there is no jugular venous distention on 06/22/2024. Lymphatics: No cervical (anterior/posterior), supraclavicular, infra clavicular, axillary, epitrochlear, or inguinal adenopathy. Chest: Symmetric rise and fall with respirations. Non-tender to palpation. Lungs: Clear to auscultation and percussion. Heart: Regular rate and rhythm. S1 and S2 noted. No S3 or S4 summation gallop. No tripartite friction rub. Grade II/ early systolic murmur @ LLSB without radiation to the carotids, axilla, or back, and which remains invariant in regards to the respiratory cycle. Abdomen: Soft, non-tender, non-distended. No rebound, guarding, Blank's sign, or organomegaly. Bowel sounds auscultated in all 4 quadrants. Extremities: No clubbing, cyanosis, or edema. 2+ pedal pulses bilaterally. Skin: No decubitus ulcer, exanthem, or enanthem. Genito-urinary: No urethral discharge. No rayo catheter. Dry underwear. Neurology: Alert and oriented in regards to person, place, time, and situation. DTR+ and symmetric. 5/5 motor strength in all 4 extremities, both proximally and distally. No pronator drift. No facial droop. No dysarthria. Psychiatry: No homicidal ideation. No suicidal ideation. No flat affect; smiles appropriately. Discharge Plan Discharge Items Patient Disposition: Home - Self-Care Reason For Visit: ACUTE CHOLECYSTITIS Discharge Diagnosis: Acute cholecystitis RESOLVED s/p laparoscopic cholecystectomy (06/22/2024, 12:20pm, General Surgeon Dr. Darnell Hurst). Condition on Discharge: Good Activity: Per Instructions section Exercise/Sports: None Driving/Machine Use: No limitations Weightbearing: Full weightbearing Non-emergency contact: Primary Care Provider and Surgeon Call non-emergency contact if: you have any medication questions, your pain is not controlled, your pain is worsening, you have a fever, your temperature is above 101, your wound has increased redness, your wound has increased drainage and your wound pain has increased Follow-up/Referrals: Manjinder Shore III, CRNP [Primary Care Provider] - Lois Caceres PA-C [Physician Safety Sealer] - Diet: Regular Addtl Attending Provider Instructions: See your PCP ANJALI Tucker III, within 5 days. See your General Surgeon Dr. Darnell Hurst within 5 days. Addtl Plastics Tooling Engineer Provider Instructions: Post-Surgical ~Discharge Instructions Activity Recommendations: - lifting limitation: (20 pounds for 2-3 weeks), - exercise/sex/sports limit: (nonstrenuous for 2 weeks), - driving or machine use limit: (none for 1 week, or until pain free and no longer taking narcotic pain medication), - Shower/bathe limit: (may shower beginning tomorrow) Diet: - Resume previous diet SPECIAL CARE INSTRUCTIONS: - May shower in 24 hours. Let water run over area and pat dry. - Leave surgical glue on incisions this will fall off on its own. - Call the surgeon's office with any questions or concerns - - (ex. temperature higher than 101 degrees F, excessive bleeding or pain). MEDICATIONS: - Resume previous medications unless instructed otherwise by your surgeon. - may alternate extra strength Tylenol and Ibuprofen as needed for mild to moderate pain -650 mg Tylenol every 6 hours as needed - Ibuprofen 600 mg every 6 hours as needed (take with food) - Percocet 1 every 6 hours, as needed for moderate to severe pain - Take daily stool softener (Colace) while taking narcotic pain medication to prevent constipation or straining. FOLLOW UP VISIT: - If not already scheduled, please call the office to schedule a two week follow-up appointment. Office number Pending Studies at Discharge: No (gallbladder pathology, will be reviewed at postop visit) Stand-Alone Forms: My [employer], Smoking Cessation Medications and DC Order Prescriptions: Continued Alive Immune Elderberry 300 mcg-45 mg- 10 mcg-5 mg tablet,chewable 1 tab PO DAILY Digestive Advantage Prob Gummy 250 million cell tablet,chewable 250 mmu cells PO DAILY Discharge Orders: Discharge Order (Routine); Ordered 06/22/24 Ordered By: Dimitri Martinez Admission Data Admit Date/Time: 06/21/24 02:18 Attending Provider: Dimitri Martinez Admit Provider: Sonal Lamb Primary Care Provider: Manjinder Shore III Other Providers: Sonal Lamb; Darnell Hurst Hospital Stay Data Consultations 06/21/24 02:03 ED Decision to Admit Stat 06/21/24 09:22 Consult General Surgery Routine Procedures Performed Operation Date: 06/22/24 10:30 Actual Procedures p Laparoscopic Cholecystectomy(Not Applicable) - Darnell Hurst MD Diagnostic Imagining Performed 06/20/24 19:49 US abdomen limited Stat 06/20/24 23:43 CT abd pelvis IV con only Stat Pending Results Patient Have Any Pending Studies at Discharge: No (gallbladder pathology, will be reviewed at postop visit) Discharge Instructions Given to Patient (Per Discharging Provider) See your PCP ANJALI Tucker III, within 5 days. See your General Surgeon Dr. Darnell Hurst within 5 days. Total Time Total Time Spent Total Time Spent (In Minutes): 35 minutes. Of this time period, 19 minutes were spent in coordinating patient's discharge. Coding Level of Care Code 34659 INP/OBS DISCH >30 MIN Diagnoses Cholecystitis, acute K81.0 Frequent unifocal PVCs I49.3
[2024-06-22 18:02] VITALS: BP 115/76; PULSE 62; RESP 20; TEMP 98.1
--- NOTE | 2024-06-22 21:31 | Electrocardiogram Report ---
Test Reason : Blood Pressure : */* mmHG Vent. Rate : 76 BPM Atrial Rate : 76 BPM P-R Int : 128 ms QRS Dur : 70 ms QT Int : 382 ms P-R-T Axes : 63 48 51 degrees QTcB Int : 429 ms Normal sinus rhythm Normal ECG No previous ECGs available Confirmed by Preston Wilson ([id number]) on 06/22/2024 9:30:41 PM Referred By: Manjinder Shore Confirmed By: Preston Wilson
--- NOTE | 2024-06-22 21:31 | Electrocardiogram Report ---
Test Reason : Blood Pressure : */* mmHG Vent. Rate : 83 BPM Atrial Rate : 83 BPM P-R Int : 126 ms QRS Dur : 74 ms QT Int : 386 ms P-R-T Axes : 71 44 52 degrees QTcB Int : 453 ms Sinus rhythm with frequent Premature ventricular complexes Otherwise normal ECG When compared with ECG of 20-Jun-2024 18:11, Premature ventricular complexes are now Present Confirmed by Preston Wilson ([id number]) on 06/22/2024 9:31:13 PM Referred By: Manjinder Shore Confirmed By: Preston Wilson
[2024-06-23 14:12] LABS: Hepatitis A Antibody IgM NON-REACTIVE (NON-REACTIVE); Hepatitis B Core Antibody IgM NON-REACTIVE (NON-REACTIVE)
== END 2024-06-22 18:55 | disposition home or self-care (01) | DRG 419 ==
LOC: SUATTDRO → ED 18:00 → SUATTDRO 06-21 02:18 → EDINP 06-21 02:18 → 2N 06-21 08:15
DX: K81.0 Acute cholecystitis; I49.3 Ventricular premature depolarization